=== PATIENT | male | born 1965 | race Caucasian/White ===

== ENCOUNTER 2019-12-19 16:02 | Outpatient (CLI) | payer OTHER, SELFPAY ==
[2019-12-20 07:34] LABS: Rapid Plasma Reagin Non-Reactive (NonReactive)
[2019-12-25 15:28] LABS: HIV DNA PCR (Qual) Not Detected (Not Detected)
== END 2019-12-19 16:03 | disposition home or self-care (01) ==
PROVIDERS: PCP Family Medicine; Visit Provider Family Medicine
DX: Z72.51 High risk heterosexual behavior (principal)
CPT/HCPCS: 36415; 86592; 87535

== ENCOUNTER → 2022-03-31 11:23 | Outpatient (CLI) | payer OTHER, SELFPAY ==
--- NOTE | ~2022-03-31 | XR_ITS ---
EXAM: XR hand RT min 3V DATE: 03/31/2022 11:31 HISTORY: NO INJURY LOSING STRENGTH IN HAND OVER LAST YEAR . COMPARISON: None available. FINDINGS: Normal mineralization. No fracture or dislocation. No lytic or blastic lesion. Mild second and third MCP joint narrowing. Hooklike osteophyte in the third metacarpal. No erosion or periosteal change. Soft tissues within normal limits. IMPRESSION: Mild scattered degenerative changes, most pronounced at the third MCP joint, noting that hooklike osteophytes can be seen with hemachromatosis. Reviewed, dictated and finalized at location K. IMPRESSION: Mild scattered degenerative changes, most pronounced at the third M CP joint, noting that hooklike osteophytes can be seen with hemachromatosis.
== END ==
PROVIDERS: PCP Family Medicine; Visit Provider Family Medicine
DX: R29.898 Other symptoms and signs involving the musculoskeletal system (principal); R93.6 Abnormal findings on diagnostic imaging of limbs
CPT/HCPCS: 73130

== ENCOUNTER 2022-04-07 10:10 | Outpatient (CLI) | payer OTHER, SELFPAY ==
--- NOTE | ~2022-04-07 | XR_ITS ---
EXAMINATION: XR abdomen/kub 1V DATE: 04/07/2022 10:26 INDICATION: Unspecified abdominal pain. TECHNIQUE: A supine view of the abdomen on 2 radiographs was obtained. COMPARISON: CT abdomen and pelvis 10/03/2018 FINDINGS: There are no dilated loops of bowel. There is a paucity of stool in the colon. There is no visible urolithiasis. IMPRESSION: 1. Normal bowel gas pattern. Reviewed, dictated and finalized at location A. MBLY RIVETER
== END 2022-04-07 10:11 | disposition home or self-care (01) ==
PROVIDERS: PCP Family Medicine; Visit Provider Family Medicine
DX: R10.9 Unspecified abdominal pain (principal)
CPT/HCPCS: 74018

== ENCOUNTER 2022-05-11 07:00 | Outpatient (NON) | payer OTHER, SELFPAY | END 2022-05-11 07:01 | disposition home or self-care (01) | LOC: ANHLAB 05-12 08:06 | PROVIDERS: Visit Provider Internal Medicine Gastroenterology | DX: R19.5 Other fecal abnormalities (principal) | CPT/HCPCS: 88305 ==

== ENCOUNTER 2022-05-11 09:32 | Day surgery (SDC) | payer OTHER, SELFPAY ==
[2022-04-08 13:21] VITALS: BMI 27.4
[2022-04-08 13:58] VITALS: BMI 27.6
[2022-05-11 10:54] VITALS: BP 141/94; PULSE 70; RESP 18; TEMP 36.8; O2SAT 99
[2022-05-11] MEDS: LACTATED RINGERS 1,000 ML 150 ML IV CONT (11:10)
--- NOTE | 2022-05-11 11:15 | WPDANESEPPF ---
Anes - Initial Pre Proc Eval Procedure: Operation Date: 05/11/22 12:00 Proposed Procedures p Diagnostic Colonoscopy - Boy Rasmussen MD Date/Time: 05/11/22 11:15 Surgeon: Boy Rasmussen MD Pre Op Diagnosis: Positive Cologuard Patient Data Age: 56 Gender: M Height: 1.79 m Weight: 87 kg Last Vital Signs Temp 36.8 C 05/11/22 10:54 Pulse 70 05/11/22 10:54 Resp 18 05/11/22 10:54 BP 141/94 H 05/11/22 10:54 Pulse Ox 99 05/11/22 10:54 O2 Del Method Room Air 05/11/22 10:54 Allergies Allergy/AdvReac Type Severity Reaction Status Date / Time No Known Allergies Allergy Unknown Verified 05/11/22 10:57 Home Medications Medication Instructions Recorded Confirmed Type sildenafil 100 mg tablet 100 mg PO PRN PRN sexual activity 04/30/22 05/11/22 History Patient hx anesthesia problems: other (yes but unknown) Family hx anesthesia problems: none Results Review: All pre-operative results and documents have been reviewed as part of the pre-operative evaluation. [facility] Past Medical History Medical History Achilles tendinitis Bilateral tinnitus BMI 27.0-27.9,adult Elevated glucose Elevated hemoglobin Gout, unspecified High risk sexual behavior Lateral epicondylitis of left elbow Mixed hyperlipidemia Positive colorectal cancer screening using Cologuard test Right flank pain Right hand weakness Tobacco abuse Family History Family History Grandparent Hypertension Diabetes mellitus Mother Hypertension Social History Social History Smoking packs per day: 0.5 Smoking cigarettes per day: 10.0 Years smoked: 43 Smoking pack-years: 21.50 Smoking status: Current every day smoker Tobacco type: cigarettes Alcohol intake: current Drinks per week: 12 Substance use type: unknown Living arrangements: with family Spiritual care concerns: No Anes - Eval Final PreProcedure Day of Procedure 05/11/22 11:15 Patient weight: overweight Heart: regular rate and rhythm Lungs: decreased breath sounds Airway: Mallampati scale class II Neurological: alert and oriented Last oral intake: >/= 8 hours ASA classification: III Emergent: no Anesthetic plan: proceed Anesthesia type and monitoring: general GIVS and standard monitoring Results Review: All pre-operative results and documents have been reviewed as part of the pre-operative evaluation. Informed Consent: The patient's anesthetic plan and its attendant risks and benefits were discussed with the patient/family/POA. Questions were solicited and answers provided to the satisfaction of the patient/family/POA.
--- NOTE | 2022-05-11 11:16 | PM.HPGS ---
History of Present Illness History of Present Illness Consent: Risks, benefits, and alternatives have been discussed and questions answered. Patient agrees to proceed with procedure. Chief complaint: Positive Cologuard Narrative: Petr Pryor is a 56 year old male here for first colonoscopy, had positive cologuard Review of Systems Constitutional: Constitutional: Denies headache(s) and Denies weakness Eyes: Eyes: Denies blurry vision ENT: Reports Normal hearing present, Denies headache(s) and Denies neck pain Cardiovascular: Cardiovascular: Denies chest pain and Denies dyspnea Respiratory: Respiratory: Denies dyspnea Gastrointestinal: Gastrointestinal: Reports no additional gastrointestinal complaints Genitourinary: Genitourinary: Denies dysuria Musculoskeletal: Musculoskeletal: Denies neck pain Integumentary/Breasts: Skin/Breast: Denies dry skin Neurologic: Reports Normal hearing present, Denies headache(s) and Denies weakness Psychiatric: Psychiatric: Denies anxiety Endocrine: Endocrine: Denies change in body appearance Hematologic/Lymphatic: Hematologic/Lymphatic: Denies easy bleeding Allergic/Immunologic: Allergic/Immunologic: Denies urticaria PMFSH Past Medical History Medical History Achilles tendinitis Bilateral tinnitus BMI 27.0-27.9,adult Elevated glucose Elevated hemoglobin Gout, unspecified High risk sexual behavior Lateral epicondylitis of left elbow Mixed hyperlipidemia Positive colorectal cancer screening using Cologuard test Right flank pain Right hand weakness Tobacco abuse Family History Family History Grandparent Hypertension Diabetes mellitus Mother Hypertension Social History Social History Smoking packs per day: 0.5 Smoking cigarettes per day: 10.0 Years smoked: 43 Smoking pack-years: 21.50 Smoking status: Current every day smoker Tobacco type: cigarettes Alcohol intake: current Drinks per week: 12 Substance use type: unknown Living arrangements: with family Spiritual care concerns: No Meds Home Medications and Allergies Home Medications Medication Instructions Recorded Confirmed Type sildenafil 100 mg tablet 100 mg PO PRN PRN sexual activity 04/30/22 05/11/22 History Allergies Allergy/AdvReac Type Severity Reaction Status Date / Time No Known Allergies Allergy Unknown Verified 05/11/22 10:57 Vital Signs Vital Signs - 24 hr 05/11/22 10:54 Temperature 98.2 F Pulse Rate 70 Respiratory Rate 18 Blood Pressure 141/94 H Pulse Oximetry 99 Oxygen Delivery Room Air Exam Const: General: comfortable and no acute distress HENMT: Face/Nose/Sinus: Normal nares present Eyes: General: appearance normal, both eyes and all related structures Neck: Neck: no JVD Resp: Auscultation: clear to auscultation bilaterally Cardio: Rate: regular rate Rhythm: regular rhythm GI: Inspection: non-distended GI Palp: Yes Soft to palpation Skin: General skin exam: normal color Neuro: General: gait normal Speech: normal speech Extrem: General: normal to inspection Psych: Mental Status: mental status grossly normal Assessment and Plan Assessment and plan (1) Positive colorectal cancer screening using Cologuard test: Code(s): R19.5 - Other fecal abnormalities Status: Acute Assessment and Plan: colonoscopy
[2022-05-11 11:38] VITALS: BP 113/83; PULSE 73; RESP 20; O2SAT 98
[2022-05-11 11:48] VITALS: BP 127/94; PULSE 79; RESP 20; O2SAT 99
[2022-05-11 11:58] VITALS: BP 131/86; PULSE 81; RESP 20; O2SAT 100
--- NOTE | 2022-05-11 12:09 | WPDANESPN ---
Anes - Prog Note Post-Op Date/Time: 05/11/22 12:09 Cardiovascular status: normal Respiratory status: normal Airway patency: baseline Mental status: baseline Post-Op hydration status: normal Vital Signs: Last Vital Signs Temp 36.8 C 05/11/22 10:54 Pulse 81 05/11/22 11:58 Resp 20 05/11/22 11:58 BP 131/86 05/11/22 11:58 Pulse Ox 100 05/11/22 11:58 O2 Del Method Room Air 05/11/22 11:58 Pain Score (VAS): 0 I/O: Intake & Output 05/10/22 05/11/22 05/11/22 23:59 07:59 15:59 Intake Total 400 Balance 400 Patient Feedback: Patient satisfied with anesthetic care.
== END 2022-05-11 12:21 | disposition home or self-care (01) ==
PROVIDERS: PCP Family Medicine; Visit Provider Internal Medicine Gastroenterology
PROC: 0DJD8ZZ Inspection of Lower Intestinal Tract, Via Natural or Artificial Opening Endoscopic (ICD-10-PCS; CPT 45378; principal; 2022-05-11 12:00)
DX: R19.5 Other fecal abnormalities (principal)
CPT/HCPCS: 45385

== ENCOUNTER → 2022-05-12 12:30 | Outpatient (CLI) | payer OTHER, SELFPAY ==
--- NOTE | ~2022-05-12 | CT_ITS ---
Non-contrast CT scan of the Abdomen and Pelvis Clinical indication: Flank pain, hematuria Technique: 5 mm axial scans were obtained through the abdomen and pelvis without intravenous or oral contrast. Dose reduction technique was used on this scan by utilizing automated exposure control and iterative reconstruction technique. The dose-length product (DLP) was 493.07 mGy-cm. COMPARISON: 10/03/2018 Findings: Images through the lung bases reveal no abnormalities. Horseshoe kidney noted. No hydronephrosis. No renal or ureteral stones identified. The liver, spleen, pancreas, gallbladder, and adrenals appear normal. There is no aortic aneurysm. There is no evidence of bowel obstruction. Images through the pelvis were performed. There is no evidence of ascites or lymphadenopathy. Urinary bladder unremarkable. Prostate gland unremarkable. Stable focal hyperdensity in the right seminal ve sicle. Impression: No acute abnormality. Horseshoe kidney, without hydronephrosis or renal/ureteral stone. Stable focal hyperdensities in the right seminal vesicle, of uncertain etiology, but stable since 10/03. Reviewed, dictated and finalized at location [] SURANCE CLAIMS ANALYST Impression: No acute abnormality. Horseshoe kidney, without hydronephrosis or renal/ureteral stone. Stable focal hyperdensities in the right seminal vesicle, of uncertain etiology , but stable since 10/03/2018.
== END ==
PROVIDERS: PCP Family Medicine; Visit Provider Family Medicine
DX: R31.9 Hematuria, unspecified (principal); R10.9 Unspecified abdominal pain; Q63.1 Lobulated, fused and horseshoe kidney
CPT/HCPCS: 74176

== ENCOUNTER → 2023-05-19 07:58 | Outpatient (CLI) | payer OTHER, SELFPAY ==
--- NOTE | ~2023-05-19 | XR_ITS ---
EXAMINATION: XR lumbar spine 6V w bending DATE: 05/19/2023 09:05 INDICATION: Lower limb weakness TECHNIQUE: Anteroposterior and lateral in neutral, flexion and extension views of the lumbar spine we re obtained. COMPARISON: 03/26/2011 FINDINGS: Bone alignment is normal. There is no hypermobility with flexion or extension. There is mil d loss of intervertebral disc space height at L4-5. The vertebral body heights are maintained. There is mild facet joint osteoarthritis at L5-S1. Small degenerative osteophytes project from the anterior endplates of multiple vertebral bodies. Calcified atherosclerosis is noted. IMPRESSION: 1. Mild lumbar spondylosis without acute findings. Reviewed, dictated and finalized at location B. GER PROJECT
== END ==
PROVIDERS: PCP Family Medicine; Visit Provider Family Medicine
DX: R29.898 Other symptoms and signs involving the musculoskeletal system (principal); M47.896 Other spondylosis, lumbar region
CPT/HCPCS: 72114

== ENCOUNTER 2023-06-29 09:31 | Outpatient (CLI) | payer OTHER, SELFPAY ==
--- NOTE | 2023-06-29 11:00 | NEURO_ITS ---
Impression: # Complains of lower extremity weakness. ? # Left lower extremity responses amplitude drop with symmetrical velocities. ? # Normal needle/EMG exam with no acute or chronic changes. ? # Clinical correlation recommended; Possibility of higher involvement cannot be ruled out. Nerve Conduction Studies Anti Sensory Summary Table Stim Site NR Peak (ms) P-T Amp (?V) Site1 Site2 Delta-P (ms) Dist (cm) Berry (m/s) Left Saphenous Anti Sensory (Ant Med Mall) 14cm 3.7 6.0 14cm Ant Med Mall 3.7 0.0 Right Saphenous Anti Sensory (Ant Med Mall) 14cm 3.8 4.9 14cm Ant Med Mall 3.8 0.0 Left Sup Fibular Anti Sensory (Ant Lat Mall) 14 cm 3.9 22.5 14 cm Ant Lat Mall 3.9 16.0 41 Right Sup Fibular Anti Sensory (Ant Lat Mall) 14 cm 3.8 12.3 14 cm Ant Lat Mall 3.8 16.0 42 Left Sural Anti Sensory (Lat Mall) Calf 4.2 22.0 Calf Lat Mall 4.2 18.0 43 Right Sural Anti Sensory (Lat Mall) Calf 4.2 17.9 Calf Lat Mall 4.2 18.0 43 Motor Summary Table Stim Site NR Onset (ms) O-P Amp (mV) Site1 Site2 Delta-0 (ms) Dist (cm) Berry (m/s) Left Peroneal Motor (Vastus Med) Ankle 4.6 2.8 Popit Ankle 9.2 44.0 48 Popit 13.8 3.0 Right Peroneal Motor (Vastus Med) Ankle 4.6 3.9 Popit Ankle 9.3 42.0 45 Popit 13.9 5.6 Left Tibial Motor (Abd Krishnamurthy Brev) Ankle 4.9 3.7 Knee Ankle 10.1 45.0 45 Knee 15.0 2.7 Right Tibial Motor (Abd Krishnamurthy Brev) Ankle 5.5 8.6 Knee Ankle 10.1 45.0 45 Knee 15.6 2.0 F Wave Studies NR F-Lat (ms) L-R F-Lat (ms) Left Peroneal (Mrkrs) (EDB) 57.16 1.09 Right Peroneal (Mrkrs) (EDB) 58.24 1.09 Left Tibial (Mrkrs) (Abd Hallucis) 57.27 0.04 Right Tibial (Mrkrs) (Abd Hallucis) 57.31 0.04 EMG Side Muscle Nerve Root Ins Act Fibs Amp Dur Recrt Comment Right AntTibialis Dp Br Fibular L4-5 Nml Nml Nml Nml Nml Right Gastroc Tibial S1-2 Nml Nml Nml Nml Nml Right Fibularis Long Sup Br Fibular L5-S1 Nml Nml Nml Nml Nml Right Flex Dig Long Tibial L5-S2 Nml Nml Nml Nml Nml Right Ext Dig Brev Dp Br Fibular L5, S1 Nml Nml Nml Nml Nml Left AntTibialis Dp Br Fibular L4-5 Nml Nml Nml Nml Nml Left Gastroc Tibial S1-2 Nml Nml Nml Nml Nml Left Fibularis Long Sup Br Fibular L5-S1 Nml Nml Nml Nml Nml Left Flex Dig Long Tibial L5-S2 Nml Nml Nml Nml Nml Left Ext Dig Brev Dp Br Fibular L5, S1 Nml Nml Nml Nml Nml Right QuadratusFem QuadFemoris L4-5, S1 Nml Nml Nml Nml Nml Left QuadratusFem QuadFemoris L4-5, S1 Nml Nml Nml Nml Nml MTDD
== END 2023-06-29 09:32 | disposition home or self-care (01) ==
LOC: ANHNEURO 09:33
PROVIDERS: PCP Family Medicine; Visit Provider Family Medicine
DX: R53.1 Weakness (principal)
CPT/HCPCS: 95886; 95911

== ENCOUNTER 2024-04-18 14:59 | Outpatient (CLI) | payer OTHER, SELFPAY ==
--- NOTE | ~2024-04-18 | XR_ITS ---
EXAMINATION: XR shoulder RT min 2V DATE: 04/18/2024 15:15 INDICATION: Right shoulder pain. TECHNIQUE: 4 views of right shoulder were obtained. COMPARISON: Right shoulder radiographs 09/17/2014 FINDINGS: Alignment is normal. No fracture. There is mild osteoarthritis of glenohumeral joint and ac romioclavicular joint. There is calcific tendinitis of the rotator cuff. IMPRESSION: 1. Mild polyarticular osteoarthritis. 2. Calcific tendinitis of the rotator cuff. Reviewed, dictated and finalized at location A. TO CHIP PROCESSING SUPERVISOR
== END 2024-04-18 15:00 | disposition home or self-care (01) ==
LOC: ANHIMG 15:01
PROVIDERS: PCP Family Medicine; Visit Provider Physician Assistant Medical
DX: M19.011 Primary osteoarthritis, right shoulder (principal)
CPT/HCPCS: 73030

== ENCOUNTER 2024-09-23 10:10 | Emergency (ER) | payer OTHER, SELFPAY ==
[2024-09-23 10:13] VITALS: BP 148/87; PULSE 57; RESP 18; TEMP 36.7; O2SAT 99
--- NOTE | 2024-09-23 10:33 | ECG_ITS ---
Test Date: 2024-09-23 10:47:34 Measurements Intervals [place] Rate: 54 P: 8 [place]: 224 QRS: 31 QRSD: 107 T: 41 QT: 400 QTc: 380 Interpretive Statements SINUS BRADYCARDIA WITH FIRST DEGREE AV BLOCK CANNOT R/O SEPTAL INFARCT, AGE INDETERMINATE BASELINE ARTIFACT- I, II, III, AVR, AVL, AVF, V5 ABNORMAL ECG No previous ECG available for comparison Electronically Signed On 09-23-2024 12:57:48 CDT by Ryan Lezama D.O.
--- NOTE | 2024-09-23 10:55 | ED.CHESTPAIN ---
HPI - Chest Pain General Chief Complaint: Chest Pain Stated Complaint: middle chest pain Time Seen by Provider: 09/23/24 10:40 Source: patient, RN notes reviewed and old records reviewed Mode of arrival: ambulatory Limitations: no limitations History of Present Illness HPI narrative: 59 year old male presents to [facility] with complaints of awakening this morning around 0700 with upper chest pain that lasted about an hour that was non radiating but a constant dull aching pain. Patient reports that he has no shortness of breath, no diaphoresis, no nausea or any dizziness and is not currently having any chest pain. Patient reports that a week ago had some throbbing pain in his neck none today. Patient reports that he has an uneasy feeling today, states he changed clothes 3 times before he came to clinic. Patient reports that he takes no medication daily, is former 1 pack per day smoker but quit in November of 2023. Patient reports alcohol use about 3 times weekly of 6 drinks usually on each occasion. MD complaint: other (chest pain this morning around 7 am lasted for 1 hour) Pertinent past history: other (former smoker) Onset (ago): day(s) (7 am lasted for about an hour, no nausea, diaphoresis or dyspnea) Timing of current episode: other (this am for 1 hour) Pain location: substernal Pain radiation: none Quality: aching and dull Treatment prior to arrival: none Risk Factors Coronary artery disease risk factors: smoking history (former) and hyperlipidemia Related Data Home Medications ?Medication ?Instructions ?Recorded ?Confirmed ?Last Taken ?Type No Home Medications 09/23/24 09/23/24 Unknown History Allergies Allergy/AdvReac Type Severity Reaction Status Date / Time No Known Allergies Allergy Unknown Verified 09/23/24 11:33 Review of Systems Review of Systems: CONSTITUTIONAL: Denies fever, chills, or sweats. EYES: Denies visual changes, redness, or discharge. ENT: Denies rhinorrhea, congestion, sore throat, or otalgia. CARDIOVASCULAR: Reports mid sternal chest pain at 7 am lasting about 1 hour gone now was non radiating, no nausea or diaphoresis,no dyspnea, no palpitations, or edema. RESPIRATORY: Denies cough or dyspnea. GASTROINTESTINAL: Denies abdominal pain, nausea, vomiting, or diarrhea. GENITOURINARY: Denies dysuria or hematuria. SKIN: Denies rash or itching. MUSCULOSKELETAL: Denies back pain, joint pain, or myalgia. NEUROLOGIC: Denies headache, numbness, or weakness. PSYCHIATRIC: Denies anxiety or depression. All systems reviewed & are unremarkable except as noted in HPI and below PMFSH Past Medical History Medical History Low testosterone level in male Decreased libido Left leg weakness BMI 26.0-26.9,adult Changing skin lesion High risk sexual behavior Right flank pain Right hand weakness Third digit BMI 27.0-27.9,adult Elevated hemoglobin Elevated glucose Tobacco abuse Bilateral tinnitus Achilles tendinitis Positive colorectal cancer screening using Cologuard test Lateral epicondylitis of left elbow Gout, unspecified Mixed hyperlipidemia Surgical History Surgical History Hx of appendectomy History of tonsillectomy Family History Family History Grandparent Hypertension Diabetes mellitus Mother Hypertension Social History Social History Smoking packs per day: 1 Smoking cigarettes per day: 20.0 Years smoked: 36 Smoking pack-years: 36.00 Smoking status: Former smoker Tobacco type: cigarettes Additional smoking assessment comments: Quit in November 2024 Alcohol intake: current Drinks per week: 18 Substance use type: marijuana Other substance usage details: 2-3 times a week Do You Feel Safe in your Home?: Yes Lack of Transportation: No Lack of Food: Never True Current Housing: I Have Housing Concerned About Future Housing: No Difficulty Paying Gas/Electric Bills: No Difficulty Paying for Meds: No Currently Unemployed: No Education: Bachelor's Degree Difficulty w/ Childcare or Family Care: No Living arrangements: with family Occupation/Education: occupation 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 There is no relevant family history pertinent to the presenting complaint Exam Narrative: GENERAL: Well-appearing, well-nourished, and in no acute distress at this time HEAD: Normocephalic, atraumatic. EYES: PERRLA and EOMI. ENT: Nares clear, no rhinorrhea or epistaxis. Mucous membranes moist. throat pink with no swelling NECK: Supple. no lymphadenopathy CHEST: Clear to auscultation. No respiratory distress. lungs clear to auscultation SAO2 99% on room air HEART: Regular rate and rhythm. No murmur heard. Normal peripheral pulses. ABDOMEN: Soft, nontender, nondistended, normal active bowel sounds. EXTREMITIES: Normal range of motion. No edema. SKIN: Warm, dry, no rash. NEURO: No focal deficits. Alert and oriented x3. Course Course Emergency Course: Patient is aware of diagnosis, understands and agrees to treatment plan.? Anticipatory guidance given.? Patient agrees to follow-up as directed and is aware of reasons to seek care at the emergency department. Portions of this record may have been created with voice recognition software Level of Care: Express Care Visit Vital Signs Vital signs: Vital Signs Temperature 36.7 C 09/23/24 10:13 Pulse Rate 57 L 09/23/24 10:13 Respiratory Rate 18 09/23/24 10:13 Blood Pressure 148/87 H 09/23/24 10:13 Pulse Oximetry 99 09/23/24 10:13 Oxygen Delivery Room Air 09/23/24 10:13 Temperature 36.7 C 09/23/24 10:13 Pulse Rate 57 L 09/23/24 10:13 Respiratory Rate 18 09/23/24 10:13 Blood Pressure 148/87 H 09/23/24 10:13 Pulse Oximetry 99 09/23/24 10:13 Oxygen Delivery Room Air 09/23/24 10:30 Reviewed MDM - Chest Pain Differential Diagnosis Differential diagnosis: Likely stable angina, unstable angina pectoris, atypical chest pain, st elevation myocardial infarction, chest pain and other (septal infarct age indeterminate) Medical Records Data Attestation: I reviewed the patient's medical records. ECG Data EKG #1: Attestation: I personally reviewed and interpreted this ECG as follows: ECG completion date: 09/23/24 ECG completion time: 10:47 Prior ECG tracings: not available for review Ischemic changes: q waves Interpretation: sinus bradycardia with first degree AV block rate 54, RI 224ms, QRS 107ms QT 400ms EKG Interpretation: bradycardia (1st degree AV Block) and other (possible septal infarct age indeterminant) Critical Care Time Critical Care Time Critical Care Time: Yes (30 minutes) Total Critical Care Time: 30 Discharge Plan Discharge Clinical Impression: Chest pain Qualifiers: Chest pain type: unspecified Qualified Code(s): R07.9 - Chest pain, unspecified Patient Disposition: Acute Care Hospital Condition: Stable Patient Language: Welsh Prescriptions: No Action No Home Medications Follow-up/Referrals: Luis Manuel James MD [Primary Care Provider] - Time of Disposition: 11:15 Quality Lynn Coma Scale Eyes: Open Verbal: Oriented and Alert Motor: Follows Commands Matthews Coma Total Score: 15
[2024-09-23] MEDS: ASPIRIN 81 MG CHEWABLE TABLET 324 MG PO (11:07)
== END 2024-09-23 11:15 | disposition short-term general hospital (02) ==
PROVIDERS: Emergency Provider Registered Nurse; PCP Family Medicine
DX: R07.9 Chest pain, unspecified (principal); R00.1 Bradycardia, unspecified; I44.0 Atrioventricular block, first degree; Z87.891 Personal history of nicotine dependence; E78.2 Mixed hyperlipidemia; M10.9 Gout, unspecified; F12.90 Cannabis use, unspecified, uncomplicated
CPT/HCPCS: 93005; 99213; A9270; G0463

== ENCOUNTER 2024-09-23 11:33 | Inpatient (IN) | payer OTHER, SELFPAY ==
[2024-09-23] VITALS (18 sets, daily range): BP systolic 132–155; BP diastolic 75–105; PULSE 51–70; RESP 16–25; TEMP 36.4–36.8; O2SAT 94–100; BMI 28.1
--- NOTE | ~2024-09-23 | XR_ITS ---
EXAMINATION: XR chest 1V portable DATE: 09/23/2024 12:01 INDICATION: Chest pain TECHNIQUE: frontal view of the chest was obtained. COMPARISON: None FINDINGS: The lungs are clear with no focal airspace opacities, pulmonary edema, pleural effusion or pneumothor ax. The cardiomediastinal silhouette is normal. Visualized bones and soft tissues are unremarkable. IMPRESSION: 1. No acute cardiopulmonary disease. Reviewed, dictated and finalized at location A.
--- NOTE | 2024-09-23 11:37 | ECG_ITS ---
Test Date: 2024-09-23 11:41:59 Measurements Intervals [place] Rate: 52 P: -16 [place]: 199 QRS: 25 QRSD: 108 T: 29 QT: 411 QTc: 384 Interpretive Statements SINUS BRADYCARDIA WITH FIRST DEGREE AV BLOCK DELAYED PRECORDIAL R/S TRANSITION BASELINE ARTIFACT- AVR, AVL, AVF BORDERLINE ECG Compared to ECG 09/23/2024 10:47:34 NO SIGNIFICANT CHANGE Electronically Signed On 09-23-2024 13:00:00 CDT by Ryan Lezama D.O.
[2024-09-23 11:57] LABS: Basophils Absolute Auto 0.1 K/mm3 (0.0-0.1); Basophils Percent Auto 0.7 % (0.2-1.2); Eosinophils Absolute Auto 0.1 K/mm3 (0-0.3); Eosinophils Percent Auto 1.4 % (0-4.4); Hematocrit 48.2 % (42.0-52.0); Hemoglobin 17.1 g/dL (14.0-18.0); Immature Granulocyte Absolute 0.04 K/mm3 (0.00-0.031); Immature Granulocyte Percent A 0.5 % (0-0.5); Lymphocytes Absolute Auto 1.98 K/mm3 (0.9-3.2); Lymphocytes Percent Auto 26.9 % (18.3-44.2); Mean Corpuscular HGB Conc 35.5 g/dl (32-36); Mean Corpuscular Hemoglobin 30.8 pg (26-34); Mean Corpuscular Volume 86.7 fl (80-100); Mean Platelet Volume 9.2 fl (7.4-10.4); Monocytes Absolute Auto 0.5 K/mm3 (0.1-0.6); Monocytes Percent Auto 7.2 % (2.6-8.5); Neutrophils Absolute Auto 4.7 K/mm3 (1.3-6.7); Neutrophils Percent Auto 63.3 % (45.5-73.1); Platelet Count Result 185 k/mm3 (150-375); Red Blood Count 5.56 M/mm3 (4.6-6.20); Red Cell Distribution Width 12.4 % (11.5-14.5); White Blood Count 7.4 K/mm3 (4.5-10.0)
--- NOTE | 2024-09-23 12:00 | ED.CHESTPAIN ---
HPI - Chest Pain General Chief Complaint: Chest Pain Stated Complaint: CP, abnormal EKG Time Seen by Provider: 09/23/24 11:37 History of Present Illness HPI narrative: 59-year-old male with no significant pertinent past medical history presenting to the emergency department chief complaint of midsternal chest pain that started last night. He states the chest pain is not resolved he is not having any discomfort but about 1 hour ago he went to urgent care with complaints of the chest pain. They obtained EKG that shows concerning findings and referred him to the emergency department. Patient received 324 mg of aspirin at the urgent care. Patient denies any chest pain presently, no shortness a breath, nausea, vomiting, abdominal pain or back pain. He states he has had GERD like symptoms intermittently several weeks ago but thought nothing of it. No cardiac history to his knowledge, no history of thromboembolic disease or aortic pathology. He was otherwise in his normal state of health. Related Data Home Medications ?Medication ?Instructions ?Recorded ?Confirmed ?Last Taken ?Type No Home Medications 09/23/24 09/23/24 Unknown History Allergies Allergy/AdvReac Type Severity Reaction Status Date / Time No Known Allergies Allergy Unknown Verified 09/23/24 11:33 Review of Systems Review of Systems: As reviewed above in HPI [facility] Past Medical History Medical History Low testosterone level in male Decreased libido Left leg weakness BMI 26.0-26.9,adult Changing skin lesion High risk sexual behavior Right flank pain Right hand weakness Third digit BMI 27.0-27.9,adult Elevated hemoglobin Elevated glucose Tobacco abuse Bilateral tinnitus Achilles tendinitis Positive colorectal cancer screening using Cologuard test Lateral epicondylitis of left elbow Gout, unspecified Mixed hyperlipidemia Surgical History Surgical History Hx of appendectomy History of tonsillectomy Family History Family History Grandparent Hypertension Diabetes mellitus Mother Hypertension Social History Social History Smoking packs per day: 1 Smoking cigarettes per day: 20.0 Years smoked: 36 Smoking pack-years: 36.00 Smoking status: Former smoker Tobacco type: cigarettes Additional smoking assessment comments: Quit in November 2024 Alcohol intake: current Drinks per week: 18 Substance use type: marijuana Other substance usage details: 2-3 times a week Do You Feel Safe in your Home?: Yes Lack of Transportation: No Lack of Food: Never True Current Housing: I Have Housing Concerned About Future Housing: No Difficulty Paying Gas/Electric Bills: No Difficulty Paying for Meds: No Currently Unemployed: No Education: Bachelor's Degree Difficulty w/ Childcare or Family Care: No Living arrangements: with family Occupation/Education: occupation 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 Mucous membranes moist. NECK: Supple. CHEST: [Clear to auscultation. No respiratory distress.] HEART: [Regular rate and rhythm]. No murmur heard. [Normal peripheral pulses.] ABDOMEN: [Soft, nondistended], [nontender], [No rigidity or guarding] EXTREMITIES: Normal range of motion. [No edema.] SKIN: Warm, dry, no rash. NEURO: [No focal deficits]. Alert and oriented [x3.] PSYCH: [Normal mood and affect.] Course Vital Signs Vital signs: Vital Signs Temperature 36.4 C 09/23/24 11:41 Pulse Rate 51 L 09/23/24 11:41 Respiratory Rate 18 09/23/24 11:41 Blood Pressure 152/95 H 09/23/24 11:41 Pulse Oximetry 99 09/23/24 11:41 Oxygen Delivery Room Air 09/23/24 11:41 Temperature 36.6 C 09/23/24 18:10 Pulse Rate 63 09/23/24 18:10 Respiratory Rate 20 09/23/24 18:10 Blood Pressure 146/96 H 09/23/24 18:10 Pulse Oximetry 99 09/23/24 18:10 Oxygen Delivery Room Air 09/23/24 11:58 MDM - Chest Pain MDM Narrative Medical decision making narrative: 59-year-old male presenting to the emergency department from urgent care for concerns of chest pain. He had chest pain last night intermittently in the center of his chest. Stated that resolved this morning but he went to urgent care. Urgent care did EKG then referred him to the emergency department. He is not having any symptoms at this time such as chest pain, shortness a breath, back pain, abdominal pain. No nausea or vomiting. He did get aspirin at urgent care prior to arrival by private vehicle. He is slightly hypertensive with a blood pressure 152/95, pulse 51 with a sinus bradycardia on the monitor. Normal oxygen saturation and afebrile. He has an unremarkable examination with strong symmetric pulses, warm extremities. No present symptomatology. EKG, chest x-ray and serial troponins were drawn. EKG was reviewed from urgent care that shows some deep Q-waves that appear to have a improved but no ST segment elevations or depressions that are concerning for an acute OK at this time. Workup shows no leukocytosis or anemia. Normal platelet count. Initial troponin is negative however his 3 hour troponin did have a positive delta ruling in ACS at this time. EKG shows no acute ischemic evidence or changes from prior. Coagulation panel was normal. Normal renal function, normal glucose and electrolyte panel. Chest x-ray shows no acute cardiopulmonary disease. Cardiology was consulted and he was given a 1 milligram/kilogram dose of Lovenox. Spoke to the hospitalist for admission to the IMU at this time. Patient was made aware of the plan and agreeable. Medical Records Data Attestation: I reviewed the patient's medical records. Lab Data Attestation: I reviewed the patient's lab results. 09/23/24 11:49 09/23/24 11:49 Labs: Lab Results 09/23/24 09/23/24 Range/Units 11:49 14:44 WBC 7.4 (4.5-10.0) K/mm3 RBC 5.56 (4.6-6.20) M/mm3 Hgb 17.1 (14.0-18.0) g/dL Hct 48.2 (42.0-52.0) % MCV 86.7 (80-100) fl MCH 30.8 (26-34) pg MCHC 35.5 (32-36) g/dl RDW 12.4 (11.5-14.5) % Plt Count 185 (150-375) k/mm3 MPV 9.2 (7.4-10.4) fl Immature Gran % (Auto) 0.5 (0-0.5) % Neut % (Auto) 63.3 (45.5-73.1) % Lymph % (Auto) 26.9 (18.3-44.2) % [place] % (Auto) 7.2 (2.6-8.5) % Eos % (Auto) 1.4 (0-4.4) % Baso % (Auto) 0.7 (0.2-1.2) % Lymph # (Auto) 1.98 (0.9-3.2) K/mm3 [place] # (Auto) 0.5 (0.1-0.6) K/mm3 Eos # (Auto) 0.1 (0-0.3) K/mm3 Baso # (Auto) 0.1 (0.0-0.1) K/mm3 Abs Immat Gran (auto) 0.04 H (0.00-0.031) K/mm3 Absolute Neuts (auto) 4.7 (1.3-6.7) K/mm3 Absolute Nucleated RBC 0.000 (0.0-0.012) K/mm3 Nucleated RBC % 0.0 (0.0-0.2) % PT 12.9 (11.1-14.7) Seconds INR 0.9 APTT 25.2 (22.3-36.8) Seconds Sodium 138 (137-145) mmol/L Potassium 4.1 (3.4-5.0) mmol/L Chloride 105 (98-107) mmol/L Carbon Dioxide 21 L (22-30) mmol/L Anion Gap 12 (4-12) mmol/L BUN 20 (9-20) mg/dL Creatinine 0.71 (0.7-1.3) mg/dL Estim Creat Clear Calc 104 ml/min Estimated GFR > 60 (59 - ) Glucose 94 (65-110) mg/dL Calcium 9.2 (8.4-10.2) mg/dL Total Bilirubin 1.0 (0.2-1.3) mg/dL AST 33 (17-59) U/L ALT 55 H (6-50) U/L Alkaline Phosphatase 65 (38-126) U/L Troponin I < 0.012 0.025 D (0.000-0.034) ng/mL Total Protein 8.0 (6.3-8.2) g/dL Albumin 4.7 (3.5-5.1) g/dL Lipase 82 (23-300) U/L Imaging Data Attestation: I personally reviewed and interpreted this imaging study as follows: My impression: Impressions Chest X-Ray 09/23/24 12:11 IMPRESSION: 1. No acute cardiopulmonary disease. ECG Data EKG #1: Attestation: I personally reviewed and interpreted this ECG as follows: ECG completion date: 09/23/24 ECG completion time: 11:41 Prior ECG tracings: available for review Interpretation: No ST segment elevations, depressions or inversions. Sinus bradycardia with a first-degree block. PA 199, QTC 383, QRS 108 milliseconds. Compared to prior EKG there are no significant interval changes. Final interpretation sinus bradycardia with first-degree AV block. Critical Care Time Critical Care Time Critical Care Time: Yes Total Critical Care Time: 36 Discharge Plan Discharge Clinical Impression: Elevated troponin, Non-ST elevation [place] (NSTEMI) Chest pain Qualifiers: Chest pain type: unspecified Qualified Code(s): R07.9 - Chest pain, unspecified Patient Disposition: Still a Patient Condition: Stable
[2024-09-23 12:08] LABS: INR 0.9; Prothrombin Time 12.9 Seconds (11.1-14.7)
[2024-09-23 12:09] LABS: Partial Thromboplastin Time 25.2 Seconds (22.3-36.8)
[2024-09-23 12:14] LABS: Alanine Aminotransferase 55 U/L (6-50); Albumin Level 4.7 g/dL (3.5-5.1); Alkaline Phosphatase 65 U/L (38-126); Anion Gap 12 mmol/L (4-12); Aspartate Amino Transferase 33 U/L (17-59); Blood Urea Nitrogen 20 mg/dL (9-20); Calcium 9.2 mg/dL (8.4-10.2); Carbon Dioxide 21 mmol/L (22-30); Chloride 105 mmol/L (98-107); Estimated CRCL calculation 104 ml/min; Estimated Glomerular Filt Rate > 60; Glucose 94 mg/dL (65-110); Lipase 82 U/L (23-300); Potassium 4.1 mmol/L (3.4-5.0); Sodium 138 mmol/L (137-145)
[2024-09-23 12:24] LABS: Troponin I < 0.012 ng/mL (0.000-0.034)
--- NOTE | 2024-09-23 14:39 | ECG_ITS ---
Test Date: 2024-09-23 14:45:06 Measurements Intervals [place] Rate: 54 P: 1 GA: 219 QRS: 26 QRSD: 98 T: 23 QT: 411 QTc: 390 Interpretive Statements SINUS BRADYCARDIA WITH FIRST DEGREE AV BLOCK DELAYED PRECORDIAL R/S TRANSITION BORDERLINE R WAVE PROGRESSION, ANTERIOR LEADS CONSIDER INFERIOR INFARCT, AGE INDETERMINATE ABNORMAL ECG Compared to ECG 09/23/2024 11:41:59 No significant changes Electronically Signed On 09-23-2024 15:44:05 CDT by Ryan Lezama D.O.
[2024-09-23 15:13] LABS: Troponin I 0.025 ng/mL (0.000-0.034)
--- NOTE | 2024-09-23 15:50 | P.HP_ITS ---
H&P: HPI History of Present Illness Date/Time: 09/23/24 18:00 Chief Complaint: Chest discomfort. Narrative: This is a 59-year-old male, former smoker, with history of hyperlipidemia, gastroesophageal reflux disease, kidney stones, and gout who presented to the emergency department for evaluation of chest discomfort. He reports the gradual onset of mild, nonradiating substernal chest tightness this morning associated with feelings of fatigue, almost like he had no energy. It resolved on its own within about an hour without intervention. He denies aggravating and alleviating factors. It is not similar to the symptoms he experiences with his GERD. He went to urgent care for evaluation and was given aspirin 324 mg and after an EKG showed some concerning findings, he was directed to the emergency department. Currently he has no complaints and denies chest tightness. He also denies syncope, near syncope, sweats, shortness of breath, nausea, vomiting, melena, pleuritic pain, lower extremity edema, and calf pain. He has known history of coronary artery disease or premature coronary artery disease in the family. He believes that he had a stress test done years ago which was unremarkable. In the ED: Vital signs on arrival include a temperature 97.6?, blood pressure 152/95, pulse 51, respiratory rate 18, SpO2 99% on room air. CMP and CBC were without significant findings. Initial troponin was undetectable but his 6 hour troponin was elevated to 0.073. EKG showed sinus bradycardia with first-degree AV block, delayed precordial R/S transition, borderline R-wave progression, and small Q-waves in lead 3. He received aspirin 324 mg at urgent care and was given enoxaparin 1 mg/kg and he is being admitted to the IMU in this setting for close monitoring and Cardiology consultation. Review of Systems Review of Systems: 12 systems were reviewed and are negativ e except for as per HPI. [facility] Past Medical History Medical History (Updated 09/23/24 @ 22:09 by Bonnie Davey PA-C) Gastroesophageal reflux disease Kidney stones Former smoker Low testosterone level in male Positive colorectal cancer screening using Cologuard test Gout, unspecified Mixed hyperlipidemia Surgical History Surgical History (Updated 09/23/24 @ 22:01 by Bonnie Davey PA-C) History of appendectomy History of tonsillectomy Family History Family History Grandparent Hypertension Diabetes mellitus Mother Hypertension Social History Social History (Updated 09/23/24 @ 22:02 by Bonnie Davey PA-C) Social History: Surrogate medical decision maker: Agnes Pryor, spouse. Code status: Full code. Smoking packs per day: 1 Smoking cigarettes per day: 20.0 Years smoked: 36 Smoking pack-years: 36.00 Smoking status: Former smoker Tobacco type: cigarettes Additional smoking assessment comments: Quit in November 2023 Alcohol intake: current Drinks per week: 18 Substance use type: marijuana Other substance usage details: 2-3 times a week Do You Feel Safe in your Home?: Yes Lack of Transportation: No Lack of Food: Never True Current Housing: I Have Housing Concerned About Future Housing: No Difficulty Paying Gas/Electric Bills: No Difficulty Paying for Meds: No Currently Unemployed: No Education: Bachelor's Degree Difficulty w/ Childcare or Family Care: No Living arrangements: with family Occupation/Education: occupation 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 Spiritual care concerns: No Meds Home Medications and Allergies Home Medications ?Medication ?Instructions ?Recorded ?Confirmed ?Type No Home Medications 09/23/24 09/23/24 History Allergies Allergy/AdvReac Type Severity Reaction Status Date / Time No Known Allergies Allergy Unknown Verified 09/23/24 11:33 Vital Signs Vital Signs - 24 hr 09/23/24 11:41 09/23/24 11:42 09/23/24 11:58 Temperature 97.6 F Pulse Rate 51 L 57 L Respiratory Rate 18 16 Blood Pressure 152/95 H 152/95 H Pulse Oximetry 99 99 97 Oxygen Delivery Room Air Room Air 09/23/24 12:31 09/23/24 13:16 09/23/24 14:15 Temperature Pulse Rate 59 L 57 L 56 L Respiratory Rate 20 20 16 Blood Pressure 155/97 H 149/94 H 139/88 Pulse Oximetry 96 97 97 Oxygen Delivery Exam Narrative: General: Well-developed, nontoxic-appearing male sitting up in bed in no acute distress. Weight: 91.6 kg. BMI: 28.2. HEENT: PERRL, EOMI. Sclera anicteric. Oral mucosa moist. Neck: Supple. Respiratory: Lungs are clear to auscultation bilaterally. Cardiovascular: Regular rate and rhythm with S1-S2. Chest: No tenderness to palpation over the chest wall. Gastrointestinal: Abdomen is soft, protuberant, nontender, and nondistended with positive bowel sounds. Skin: Warm and dry. No rash or lesions on limited exam. Extremities: No cyanosis, clubbing, or edema. Radial and pedal pulses intact. Neurological: Alert. Cranial nerves 2-12 are grossly intact. No gross focal deficits to casual conversation. Psychiatric: Pleasant and cooperative with normal mood and affect. Judgment and insight intact. H&P: Results Labs Labs: Short CBC 09/23/24 Range/Units 11:49 WBC 7.4 (4.5-10.0) K/mm3 Hgb 17.1 (14.0-18.0) g/dL Hct 48.2 (42.0-52.0) % Plt Count 185 (150-375) k/mm3 BMP 09/23/24 11:49 Sodium 138 Potassium 4.1 Chloride 105 Carbon Dioxide 21 L BUN 20 Creatinine 0.71 Glucose 94 Calcium 9.2 Cardiac Enzymes 09/23/24 09/23/24 Range/Units 11:49 14:44 Troponin I < 0.012 0.025 D (0.000-0.034) ng/mL Liver Function 09/23/24 Range/Units 11:49 Total Bilirubin 1.0 (0.2-1.3) mg/dL AST 33 (17-59) U/L ALT 55 H (6-50) U/L Alkaline Phosphatase 65 (38-126) U/L Albumin 4.7 (3.5-5.1) g/dL Imaging Chest X-Ray 09/23/24 12:11 IMPRESSION: 1. No acute cardiopulmonary disease. Assessment and Plan Assessment and plan (1) Non-ST elevation [place] (NSTEMI): Code(s): I21.4 - Non-ST elevation (NSTEMI) myocardial infarction Status: Acute (2) Mixed hyperlipidemia: Code(s): E78.2 - Mixed hyperlipidemia Status: Acute (3) Elevated blood pressure reading: Code(s): R03.0 - Elevated blood-pressure reading, without diagnosis of hypertension Status: Acute (4) Gastroesophageal reflux disease: Code(s): K21.9 - Gastro-esophageal reflux disease without esophagitis Status: Acute Plan The patient presented to the emergency department for evaluation of substernal chest tightness this morning as detailed in HPI. Labs, imaging, EKG, and all reports were personally reviewed. EKG does not show any concerning ST segment changes and his initial troponin was negative however 6 hour troponin did jump to 0.073. History is concerning for acute coronary syndrome and we will continue enoxaparin 1 mg/kg b.i.d. Hold beta-vernon for now as he is already bradycardic in the low to mid 50s. Troponins will be trended to peak. He will be NPO after midnight for possible stress test or cardiac catheterization tomorrow. Cardiology was consulted by the ED physician and their input is appreciated. Blood pressures have been ranging anywhere from the 130s to low 150s systolic. Continue to trend for now initiate hypertensives if indicated. Check fasting lipid panel in a.m.. His home medications will be reviewed and resumed as appropriate. Findings and treatment plan were discussed with the patient. Questions were solicited and answered to satisfaction. The patient's medical management will be taken over by the hospitalist team in a.m. Quality VTE Prophylaxis VTE prophylaxis: pharmacologic ordered The patient has been admitted under observation status. Hospitalist MIPS Advance Care Plan I have confirmed that the patient's Advanced Care Plan is present, code status is documented, or surrogate decision maker is listed in patient medical record.: Yes Medication Reconciliation The patient is not eligible for med reconciliation; the patient is in a emergent medical situation where delaying treatment would jeopardize the patients health.: Yes
[2024-09-23] MEDS: ENOXAPARIN 100 MG/ML SYRINGE 92 MG SUB-Q (17:13)
[2024-09-23 18:45] LABS: Troponin I 0.073 ng/mL (0.000-0.034)
--- NOTE | 2024-09-23 18:46 | ADMGEN ---
This patient, Petr Pryor, was admitted to IMU Room 213-01 at 1740. Patient/family oriented to hospital policies and general routines including ID bracelet, bed and alarms, visiting hours, pain management, procedures, bathroom and other care routines, personal items, smoking policy, room service/diet, and visiting hours. Information on how to activate the Rapid Response Team has been discussed. Patient/Family are encouraged to report perceived risks to care and to ask questions if they do not understand what they are told or what they should do.
[2024-09-24] VITALS (15 sets, daily range): BP systolic 120–152; BP diastolic 75–89; PULSE 52–88; RESP 16–24; TEMP 36.4–36.7; O2SAT 96–100
[2024-09-24 04:23] LABS: Hematocrit 44.7 % (42.0-52.0); Hemoglobin 16.1 g/dL (14.0-18.0); Mean Corpuscular Hemoglobin 31.3 pg (26-34); Mean Platelet Volume 9.2 fl (7.4-10.4); Platelet Count Result 172 k/mm3 (150-375); Red Blood Count 5.14 M/mm3 (4.6-6.20); Red Cell Distribution Width 12.2 % (11.5-14.5); White Blood Count 4.9 K/mm3 (4.5-10.0)
[2024-09-24 04:50] LABS: Troponin I 0.074 ng/mL (0.000-0.034)
[2024-09-24] MEDS: ENOXAPARIN 100 MG/ML SYRINGE 92 MG SUB-Q (05:05)
[2024-09-24 05:41] LABS: Alanine Aminotransferase 48 U/L (6-50); Alkaline Phosphatase 75 U/L (38-126); Anion Gap 8 mmol/L (4-12); Aspartate Amino Transferase 36 U/L (17-59); Bilirubin,Total 0.6 mg/dL (0.2-1.3); Blood Urea Nitrogen 19 mg/dL (9-20); Calcium 8.5 mg/dL (8.4-10.2); Carbon Dioxide 22 mmol/L (22-30); Chloride 107 mmol/L (98-107); Estimated CRCL calculation 97 ml/min; Estimated Glomerular Filt Rate > 60; Glucose 108 mg/dL (65-110); Magnesium 2.1 mg/dL (1.6-2.3); Potassium 4.1 mmol/L (3.4-5.0); Sodium 137 mmol/L (137-145)
[2024-09-24 08:35] LABS: Cholesterol 211 mg/dL (0-200); HDL Direct 48 mg/dL; Triglycerides 398 mg/dL (<150)
[2024-09-24 08:46] LABS: LDL Cholesterol Direct 108 mg/dL
[2024-09-24] MEDS: ASPIRIN 81 MG ENTERIC TABLET PO (09:26)
--- NOTE | 2024-09-24 09:34 | PM.IMPN ---
Progress Note: A&P Assessment and Plan (1) Non-ST elevation MS (NSTEMI): Code(s): I21.4 - Non-ST elevation (NSTEMI) myocardial infarction <Julio César Toure - Last Filed: 09/24/24 14:43> Status: Acute <Haja Hernández Student - Last Filed: 09/24/24 14:43> (2) Mixed hyperlipidemia: Code(s): E78.2 - Mixed hyperlipidemia <Haja Hernández Student - Last Filed: 09/24/24 14:43> Status: Acute <Haja Hernández Student - Last Filed: 09/24/24 14:43> (3) Elevated blood pressure reading: Code(s): R03.0 - Elevated blood-pressure reading, without diagnosis of hypertension <Haja Hernández Student - Last Filed: 09/24/24 14:43> Status: Acute <Haja Hernández - Last Filed: 09/24/24 14:43> (4) Gastroesophageal reflux disease: Qualifiers: Esophagitis presence: esophagitis presence not specified Qualified Code(s): K21.9 - Gastro-esophageal reflux disease without esophagitis <Haja Hernández Student - Last Filed: 09/24/24 14:43> Code(s): K21.9 - Gastro-esophageal reflux disease without esophagitis <Haja Hernández Student - Last Filed: 09/24/24 14:43> Status: Acute <Haja Hernández - Last Filed: 09/24/24 14:43> Assessment and Plan: #NSTEMI - Patient presented with recent (09/23 morning) episode of self limited chest tightness and fatigue resolving before medical intervention - Denies similar episodes, positive history for hyperlipidemia, smoking (36 pack years, quit last year), and positive familial history of CAD - Enoxaparin BID, baby aspirin OD, holding BB d/t sinus bradycardia - CXR clear, no acute cardiopulmonary disease - Negative initial troponin. Serial troponin increased to 0.073 and 0.074 - Will repeat troponin 09/24 - Echocardiogram pending - Cardiology consulted: - left heart catheterization to be performed 09/25/24 - Continue current ACS management # Mixed Hyperlipidemia/elevated blood pressure reading - BP initial elevations recorded 09/23, around 150/100s. 09/24 improved - Recommend outpatient follow up - Longstanding hyperlipidemia, no medication taken - Cholesterol 211, triglycerides 398 on 09/24 AM labs - Atorvastatin started by cardiology beginning 09/25 # GERD - Longstanding, related to food directly before sleep per patient - Chronic condition, no medication taken, monitoring for symptoms <Haja Hernández Student - Last Filed: 09/24/24 14:43> #NSTEMI - Patient presented with recent (09/23 morning) episode of self limited chest tightness and fatigue resolving before medical intervention - Denies similar episodes, positive history for hyperlipidemia, smoking (36 pack years, quit last year), and positive familial history of CAD - Enoxaparin on hold, baby aspirin OD, holding BB d/t sinus bradycardia - CXR clear, no acute cardiopulmonary disease - Negative initial troponin. Serial troponin increased to 0.073 and 0.074 - Will repeat troponin 09/24 - Echocardiogram pending - Cardiology consulted: - left heart catheterization to be performed 09/25/24 - Continue current ACS management - NPO after midnight # Mixed Hyperlipidemia/elevated blood pressure reading - BP initial elevations recorded 09/23, around 150/100s. 09/24 improved - Recommend outpatient follow up - Longstanding hyperlipidemia, no medication taken - Cholesterol 211, triglycerides 398 on 09/24 AM labs - Atorvastatin started by cardiology beginning 09/25 # GERD - Longstanding, related to food directly before sleep per patient - Chronic condition, no medication taken, monitoring for symptoms - Stable <Kang Leung PA-C - Last Filed: 09/24/24 14:54> Time Spent With Patient Time: <Kang Leung PA-C - Last Filed: 09/24/24 14:54> Subjective Date/time seen: 09/24/24 09:34 <Haja Hernández, Student - Last Filed: 09/24/24 14:43> Interval history: CC: Chest discomfort Narrative: Patient is a 59-year-old male, former smoker (36 pack years), with history of hyperlipidemia, GERD, kidney stones, and gout presenting for chest discomfort. Morning of 09/23 a gradual onset of nonradiating substernal chest tightness with associated fatigue occurred. Resolved on its own within an hour without intervention. Denies aggravating or alleviating factors. Not similar to symptoms he experiences with GERD. Patient went to urgent care and was given aspirin 324 mg and following an EKG showing some concerning findings, he was directed to the ED. Denies any chest tightness since first episode. History of coronary artery disease in the family. He believes he had a stress test done a year ago which was unremarkable. Patient was seen and examined. Patient denies any chest tightness since initial episode. Had a stressful event 2 days before chest tightness/fatigue episode, and wonders if chest tightness was related to anxiety. 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 Negative for fever, chills, chest pain, nausea, vomiting, diarrhea, changes in urine, diaphoresis, jaw pain, fatigue, and dizziness. No other acute complaints or pains currently. Discussed elevated troponin with patient. Echocardiogram ordered 09/24, cardiology consulted regarding interventions. Left heart catheterization to be performed 09/25/24. <Haja Hernández Student - Last Filed: 09/24/24 14:43> Review of Systems Review of Systems: All systems reviewed & are unremarkable except as noted in HPI and below <Haja Hernández Student - Last Filed: 09/24/24 14:43> Exam Narrative: General: Well-developed, nontoxic-appearing male sitting up in bed in no acute distress. HEENT: PERRL, EOMI. Sclera anicteric. Oral mucosa moist. Respiratory: Lungs are clear to auscultation bilaterally. Cardiovascular: Regular rate and rhythm with S1-S2. Chest: No tenderness to palpation over the chest wall. Gastrointestinal: Abdomen is soft, protuberant, nontender, and nondistended with positive bowel sounds. Skin: Warm and dry. No rash or lesions on limited exam. Extremities: No cyanosis, clubbing, or edema. Neurological: Alert. No gross focal deficits to casual conversation. Psychiatric: Judgment and insight intact. <Haja Hernández, Student - Last Filed: 09/24/24 14:43> Objective Data Vital Signs Vital Signs: Vital Signs - 24 hr 09/23/24 11:41 09/23/24 11:42 09/23/24 11:58 Temperature 97.6 F Pulse Rate 51 L 57 L Respiratory Rate 18 16 Blood Pressure 152/95 H 152/95 H Pulse Oximetry 99 99 97 Oxygen Delivery Room Air Room Air 09/23/24 12:31 09/23/24 13:16 09/23/24 14:15 Temperature Pulse Rate 59 L 57 L 56 L Respiratory Rate 20 20 16 Blood Pressure 155/97 H 149/94 H 139/88 Pulse Oximetry 96 97 97 Oxygen Delivery 09/23/24 15:46 09/23/24 15:47 09/23/24 16:00 Temperature Pulse Rate 55 L 64 58 L Respiratory Rate 20 25 H 22 H Blood Pressure 145/98 H Pulse Oximetry 97 96 96 Oxygen Delivery 09/23/24 16:15 09/23/24 16:30 09/23/24 16:31 Temperature Pulse Rate 62 60 60 Respiratory Rate 23 H 22 H 23 H Blood Pressure 144/105 H Pulse Oximetry 96 94 96 Oxygen Delivery 09/23/24 16:45 09/23/24 17:00 09/23/24 18:00 Temperature Pulse Rate 61 61 65 Respiratory Rate 25 H 20 Blood Pressure Pulse Oximetry 96 97 Oxygen Delivery 09/23/24 18:10 09/23/24 20:00 09/23/24 20:00 Temperature 97.9 F 98.2 F Pulse Rate 63 66 Respiratory Rate 20 18 Blood Pressure 146/96 H 132/75 Pulse Oximetry 99 100 Oxygen Delivery Room Air 09/23/24 20:00 09/23/24 22:00 09/24/24 00:00 Temperature Pulse Rate 70 61 Respiratory Rate Blood Pressure Pulse Oximetry Oxygen Delivery Room Air 09/24/24 00:00 09/24/24 00:00 09/24/24 02:00 Temperature 97.8 F Pulse Rate 57 L 52 L 63 Respiratory Rate 18 Blood Pressure 120/75 Pulse Oximetry 100 Oxygen Delivery 09/24/24 04:00 09/24/24 04:00 09/24/24 04:00 Temperature 97.8 F Pulse Rate 60 53 L Respiratory Rate 18 Blood Pressure 130/82 Pulse Oximetry 100 100 Oxygen Delivery Room Air 09/24/24 06:00 09/24/24 08:00 09/24/24 08:00 Temperature 97.6 F Pulse Rate 54 L 60 Respiratory Rate 24 H Blood Pressure 137/87 Pulse Oximetry 97 98 Oxygen Delivery Room Air <Haja Hernández, Student - Last Filed: 09/24/24 14:43> Intake/Output Intake/Output: Intake & Output 09/21/24 09/22/24 09/23/24 09/24/24 23:59 23:59 23:59 23:59 Intake Total 250 Output Total 450 Balance -200 <Haja Hernández, Student - Last Filed: 09/24/24 14:43> Meds/Results Medications: Active Medications Generic Name Dose Route Start Last Admin Trade Name Freq PRN Reason Stop Dose Admin Acetaminophen 650 mg 09/23/24 15:44 Acetaminophen 325 Mg Tablet PO Q4H PRN Mild Pain (1-3) or Fever Aspirin 81 mg 09/24/24 09:00 09/24/24 09:26 Aspirin 81 Mg Enteric Tablet PO 81 mg QAM PATRIZIA Administration Enoxaparin Sodium 92 mg 09/24/24 06:00 09/24/24 05:05 Enoxaparin 100 Mg/Ml Syringe SUB-Q 92 mg Q12H PATRIZIA Administration Morphine Sulfate 2 mg 09/23/24 22:11 Morphine Sulfate (*Crx) 2 Mg/Ml Inj IV PUSH Q4H PRN Pain Rated 7-10 Ondansetron HCl 4 mg 09/23/24 15:44 Ondansetron Inj 4 Mg/2 Ml Vial IV PUSH Q4H PRN Nausea Perflutren Lipid Microsphere 0 ml 09/23/24 15:44 Perflutren Lipid Microspheres 1.5 Ml Vial Diluted To 10 Ml Total Volume IV PUSH 09/26/24 15:45 ONCE PRN adequate visualization Protocol <Haja Hernández, Student - Last Filed: 09/24/24 14:43> Radiology Results: ITS Impressions Chest X-Ray 09/23/24 12:11 IMPRESSION: 1. No acute cardiopulmonary disease. <Haja Hernández, Student - Last Filed: 09/24/24 14:43> Labs Labs: Laboratory Results - last 24 hr 09/23/24 09/23/24 09/23/24 11:49 14:44 18:07 WBC 7.4 RBC 5.56 Hgb 17.1 Hct 48.2 MCV 86.7 MCH 30.8 MCHC 35.5 RDW 12.4 Plt Count 185 MPV 9.2 Immature Gran % (Auto) 0.5 Neut % (Auto) 63.3 Lymph % (Auto) 26.9 [place] % (Auto) 7.2 Eos % (Auto) 1.4 Baso % (Auto) 0.7 Lymph # (Auto) 1.98 [place] # (Auto) 0.5 Eos # (Auto) 0.1 Baso # (Auto) 0.1 Abs Immat Gran (auto) 0.04 H Absolute Neuts (auto) 4.7 Absolute Nucleated RBC 0.000 Nucleated RBC % 0.0 PT 12.9 INR 0.9 APTT 25.2 Sodium 138 Potassium 4.1 Chloride 105 Carbon Dioxide 21 L Anion Gap 12 BUN 20 Creatinine 0.71 Estim Creat Clear Calc 104 Estimated GFR > 60 Glucose 94 Calcium 9.2 Magnesium Total Bilirubin 1.0 AST 33 ALT 55 H Alkaline Phosphatase 65 Troponin I < 0.012 0.025 D 0.073 H* D Total Protein 8.0 Albumin 4.7 Triglycerides Cholesterol LDL Cholesterol Direct HDL Direct Lipase 82 09/24/24 09/24/24 04:03 04:07 WBC 4.9 RBC 5.14 Hgb 16.1 Hct 44.7 MCV 87.0 MCH 31.3 MCHC 36.0 RDW 12.2 Plt Count 172 MPV 9.2 Immature Gran % (Auto) Neut % (Auto) Lymph % (Auto) [place] % (Auto) Eos % (Auto) Baso % (Auto) Lymph # (Auto) [place] # (Auto) Eos # (Auto) Baso # (Auto) Abs Immat Gran (auto) Absolute Neuts (auto) Absolute Nucleated RBC Nucleated RBC % PT INR APTT Sodium 137 Potassium 4.1 Chloride 107 Carbon Dioxide 22 Anion Gap 8 BUN 19 Creatinine 0.77 Estim Creat Clear Calc 97 Estimated GFR > 60 Glucose 108 Calcium 8.5 Magnesium 2.1 Total Bilirubin 0.6 AST 36 ALT 48 Alkaline Phosphatase 75 Troponin I 0.074 H* Total Protein 6.0 L Albumin 4.0 Triglycerides 398 H Cholesterol 211 H LDL Cholesterol Direct 108 HDL Direct 48 Lipase <Haja Hernández, Student - Last Filed: 09/24/24 14:43>
--- NOTE | 2024-09-24 10:19 | P.CONCA_ITS ---
Assessment and Plan Assessment and plan (1) Non-ST elevation CA (NSTEMI): Code(s): I21.4 - Non-ST elevation (NSTEMI) myocardial infarction Status: Acute (2) Mixed hyperlipidemia: Code(s): E78.2 - Mixed hyperlipidemia Status: Acute (3) Elevated blood pressure reading: Code(s): R03.0 - Elevated blood-pressure reading, without diagnosis of hypertension Status: Acute Plan 1. NSTEMI 2. HTN 3. Former Smoker 4. Sinus Bradycardia - Continue ACS protocol - No BB for now, has sinus bradycardia - [facility] tomorrow - R/B/A of [facility] discussed with him and his . They agreed to proceed. - NPOMN History of Present Illness History of Present Illness Consult date/time: 09/24/24 10:19 Reason For Visit: Chest pain, elevated troponin Narrative: This is a 59-year-old male, former smoker, with history of hyperlipidemia, gastroesophageal reflux disease, kidney stones, and gout who was admitted with NSTEMI. He came in with substernal chest tightness this morning associated with feelings of fatigue, almost like he had no energy. It resolved on its own within about an hour without intervention. He denies aggravating and alleviating factors. It is not similar to the symptoms he experiences with his GERD. He also denies syncope, near syncope, sweats, shortness of breath, nausea, vomiting, melena, pleuritic pain, lower extremity edema, and calf pain. He has known history of coronary artery disease or premature coronary artery disease in the family. He believes that he had a stress test done years ago which was unremarkable. EKG shows NSR, No dynamic ST-T wave changes Trop 0.012, 0.025, 0.073, 0.074 Review of Systems 2 Review of Systems: 12 systems were reviewed and are negativ e except for as per HPI. All systems reviewed & are unremarkable except as noted in HPI and below [facility] Past Medical History Medical History (Updated 09/24/24 @ 10:08 by Haja Hernández, Student) Gastroesophageal reflux disease Kidney stones Former smoker Low testosterone level in male Positive colorectal cancer screening using Cologuard test Gout, unspecified Mixed hyperlipidemia Surgical History Surgical History (Updated 09/23/24 @ 22:01 by Bonnie G Gerling, PA-C) History of appendectomy History of tonsillectomy Family History Family History Grandparent Hypertension Diabetes mellitus Mother Hypertension Social History Social History (Updated 09/23/24 @ 22:02 by Bonnie Davey PA-C) Social History: Surrogate medical decision maker: Agnesjoleen Pryor, spouse. Code status: Full code. Smoking packs per day: 1 Smoking cigarettes per day: 20.0 Years smoked: 36 Smoking pack-years: 36.00 Smoking status: Former smoker Tobacco type: cigarettes Additional smoking assessment comments: Quit in November 2023 Alcohol intake: current Drinks per week: 18 Substance use type: marijuana Other substance usage details: 2-3 times a week Do You Feel Safe in your Home?: Yes Lack of Transportation: No Lack of Food: Never True Current Housing: I Have Housing Concerned About Future Housing: No Difficulty Paying Gas/Electric Bills: No Difficulty Paying for Meds: No Currently Unemployed: No Education: Bachelor's Degree Difficulty w/ Childcare or Family Care: No Living arrangements: with family Occupation/Education: occupation 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 Spiritual care concerns: No Meds Home Medications and Allergies Home Medications ?Medication ?Instructions ?Recorded ?Confirmed ?Type No Home Medications 09/23/24 09/23/24 History Allergies Allergy/AdvReac Type Severity Reaction Status Date / Time No Known Allergies Allergy Unknown Verified 09/23/24 11:33 Vital Signs Vital Signs - 24 hr 09/23/24 11:41 09/23/24 11:42 09/23/24 11:58 Temperature 36.4 C Pulse Rate 51 L 57 L Respiratory Rate 18 16 Blood Pressure 152/95 H 152/95 H Pulse Oximetry 99 99 97 Oxygen Delivery Room Air Room Air 09/23/24 12:31 09/23/24 13:16 09/23/24 14:15 Temperature Pulse Rate 59 L 57 L 56 L Respiratory Rate 20 20 16 Blood Pressure 155/97 H 149/94 H 139/88 Pulse Oximetry 96 97 97 Oxygen Delivery 09/23/24 15:46 09/23/24 15:47 09/23/24 16:00 Temperature Pulse Rate 55 L 64 58 L Respiratory Rate 20 25 H 22 H Blood Pressure 145/98 H Pulse Oximetry 97 96 96 Oxygen Delivery 09/23/24 16:15 09/23/24 16:30 09/23/24 16:31 Temperature Pulse Rate 62 60 60 Respiratory Rate 23 H 22 H 23 H Blood Pressure 144/105 H Pulse Oximetry 96 94 96 Oxygen Delivery 09/23/24 16:45 09/23/24 17:00 09/23/24 18:00 Temperature Pulse Rate 61 61 65 Respiratory Rate 25 H 20 Blood Pressure Pulse Oximetry 96 97 Oxygen Delivery 09/23/24 18:10 09/23/24 20:00 09/23/24 20:00 Temperature 36.6 C 36.8 C Pulse Rate 63 66 Respiratory Rate 20 18 Blood Pressure 146/96 H 132/75 Pulse Oximetry 99 100 Oxygen Delivery Room Air 09/23/24 20:00 09/23/24 22:00 09/24/24 00:00 Temperature Pulse Rate 70 61 Respiratory Rate Blood Pressure Pulse Oximetry Oxygen Delivery Room Air 09/24/24 00:00 09/24/24 00:00 09/24/24 02:00 Temperature 36.6 C Pulse Rate 57 L 52 L 63 Respiratory Rate 18 Blood Pressure 120/75 Pulse Oximetry 100 Oxygen Delivery 09/24/24 04:00 09/24/24 04:00 09/24/24 04:00 Temperature 36.6 C Pulse Rate 60 53 L Respiratory Rate 18 Blood Pressure 130/82 Pulse Oximetry 100 100 Oxygen Delivery Room Air 09/24/24 06:00 09/24/24 08:00 09/24/24 08:00 Temperature 36.4 C Pulse Rate 54 L 60 Respiratory Rate 24 H Blood Pressure 137/87 Pulse Oximetry 97 98 Oxygen Delivery Room Air 09/24/24 08:00 Temperature Pulse Rate Respiratory Rate Blood Pressure Pulse Oximetry 98 Oxygen Delivery Room Air Exam 2 Narrative: General: Well-developed, nontoxic-appearing male sitting up in bed in no acute distress. HEENT: PERRL, EOMI. Sclera anicteric. Oral mucosa moist. Respiratory: Lungs are clear to auscultation bilaterally. Cardiovascular: Regular rate and rhythm with S1-S2. Chest: No tenderness to palpation over the chest wall. Gastrointestinal: Abdomen is soft, protuberant, nontender, and nondistended with positive bowel sounds. Skin: Warm and dry. No rash or lesions on limited exam. Extremities: No cyanosis, clubbing, or edema. Neurological: Alert. No gross focal deficits to casual conversation. Psychiatric: Judgment and insight intact. Results Labs and Meds 09/24/24 04:07 09/24/24 04:07 Lab results: Cardiac Enzymes 09/23/24 09/23/24 09/23/24 Range/Units 11:49 14:44 18:07 AST 33 (17-59) U/L Troponin I < 0.012 0.025 D 0.073 H* D (0.000-0.034) ng/mL 09/24/24 Range/Units 04:07 AST 36 (17-59) U/L Troponin I 0.074 H* (0.000-0.034) ng/mL Coagulation 09/23/24 Range/Units 11:49 PT 12.9 (11.1-14.7) Seconds APTT 25.2 (22.3-36.8) Seconds Lipids 09/24/24 Range/Units 04:03 Triglycerides 398 H (<150) mg/dL Cholesterol 211 H (0-200) mg/dL CBC 09/23/24 09/24/24 Range/Units 11:49 04:07 WBC 7.4 4.9 (4.5-10.0) K/mm3 RBC 5.56 5.14 (4.6-6.20) M/mm3 Hgb 17.1 16.1 (14.0-18.0) g/dL Hct 48.2 44.7 (42.0-52.0) % Plt Count 185 172 (150-375) k/mm3 Lymph # (Auto) 1.98 (0.9-3.2) K/mm3 [place] # (Auto) 0.5 (0.1-0.6) K/mm3 Eos # (Auto) 0.1 (0-0.3) K/mm3 Baso # (Auto) 0.1 (0.0-0.1) K/mm3 Comprehensive Metabolic Panel 09/23/24 09/24/24 Range/Units 11:49 04:07 Sodium 138 137 (137-145) mmol/L Potassium 4.1 4.1 (3.4-5.0) mmol/L Chloride 105 107 (98-107) mmol/L Carbon Dioxide 21 L 22 (22-30) mmol/L BUN 20 19 (9-20) mg/dL Creatinine 0.71 0.77 (0.7-1.3) mg/dL Glucose 94 108 (65-110) mg/dL Calcium 9.2 8.5 (8.4-10.2) mg/dL AST 33 36 (17-59) U/L ALT 55 H 48 (6-50) U/L Alkaline Phosphatase 65 75 (38-126) U/L Total Protein 8.0 6.0 L (6.3-8.2) g/dL Albumin 4.7 4.0 (3.5-5.1) g/dL Intake and Output 09/23/24 09/24/24 09/24/24 23:59 07:59 15:59 Intake Total 250 240 Output Total 450 Balance -200 240 Intake: Oral 250 240 Output: Urine 450 Patient Weight 09/24/24 23:59 Weight 91.6 kg
[2024-09-24 15:10] LABS: Troponin I 0.034 ng/mL (0.000-0.034)
[2024-09-25] VITALS (26 sets, daily range): BP systolic 112–156; BP diastolic 73–127; PULSE 52–71; RESP 13–21; TEMP 36.4–37.1; O2SAT 96–98
--- NOTE | 2024-09-25 06:00 | ECHO_ITS ---
Patient Info Name: Petr Pryor Age: 59 years : 1965 Gender: Male Ht: 71 in Wt: 201 lbs BSA: 2.15 m2 HR: 53 bpm BP: 156 / 91 mmHg Technical Quality: Good Exam Date: 09/25/2024 10:13 AM Exam Location: Echo Lab Patient Status: Inpatient Admit Date: 09/24/2024 Staff Ordering Physician: Brenden Bains MD Revenue Collector: Mihaela Willard RDCS Attending Provider: Kang Leung PA-C Referring Physician: Herson BRICE; Exam Type: CA echo doppler color flow Study Info Indications - Elevated trop - Chest Pain Complete two-dimensional, color flow and Doppler transthoracic echocardiogram is performed. Summary 1. Complete two-dimensional, color flow and Doppler transthoracic echocardiogram is performed. 2. Left ventricular systolic function is normal, estimated at 60-65%. 3. There is mildly increased left ventricular wall thickness. 4. The left ventricular diastolic function is grade I diastolic dysfunction. 5. There is trace tricuspid valve regurgitation. 6. No pulmonary hypertension, estimated pulmonary arterial systolic pressure is 21 mmHg. 7. There is mild pulmonic regurgitation. Left Ventricle Left ventricular chamber dimension is normal. Left ventricular systolic function is normal, estimated at 60-65%. There is mildly increased left ventricular wall thickness. Left ventricular septal wall motion is normal. The left ventricular diastolic function is grade I diastolic dysfunction. Right Ventricle Right ventricular chamber dimension is normal. Right ventricular systolic function is normal. Left Atria Left atrial chamber dimension is normal. Right Atria Right atrial chamber dimension is normal. Aortic Valve The aortic valve is trileaflet. There is no aortic valve sclerosis. There is no aortic valve stenosis. There is no aortic valve regurgitation. Pulmonic Valve The pulmonic valve is normal. There is no pulmonic valve stenosis. There is mild pulmonic regurgitation. Mitral Valve The mitral valve has normal leaflets. There is no mitral valve stenosis. There is no mitral valve regurgitation. Tricuspid Valve The tricuspid valve leaflets are normal. There is no significant tricuspid valve stenosis. There is trace tricuspid valve regurgitation. No pulmonary hypertension, estimated pulmonary arterial systolic pressure is 21 mmHg. Pericardium/Pleural The pericardium appears normal. There is no pericardial effusion. Inferior Vena Cava Normal inferior vena cava with >50% collapse upon inspiration consistent with Empty right atrial pressure, 5 mmHg. Aorta The aortic root size at the sinus of Valsalva is normal. The prox ascending aorta size is normal. Left Ventricular Outflow Tract Name Value Normal LVOT 2D LVOT Diameter 2.0 cm LVOT Doppler LVOT Peak Gradient 4 mmHg LVOT Mean Gradient 2 mmHg LVOT VTI 18 cm LVOT VTI/AV VTI Ratio 0.7 LVOT Stroke Volume 53 ml LVOT CO 12.0 l/min LVOT CI 5.6 l/min/m2 Pulmonic Valve Name Value Normal PV Doppler PV Peak Gradient 6 mmHg Mitral Valve Name Value Normal MV Doppler MV Decel G[place] 139 cm/s2 MV PHT 107 ms MV Area (PHT) 2.1 cm2 4.0-5.0 MV Diastolic Function MV E Peak Velocity 52 cm/s MV A Peak Velocity 72 cm/s MV E/A 0.7 MV Decel Time 370 ms MV Annular TDI MV E/e' (Septal) 6.2 <=8.0 MV E/e' (Lateral) 5.5 <=8.0 MV E/e' (Average) 5.8 Tricuspid Valve Name Value Normal TV Regurgitation Doppler TR Peak Velocity 202 cm/s TR Peak Gradient 13 mmHg Estimated PAP/RSVP RA Pressure 5 mmHg <=5 PA Systolic Pressure 21 mmHg <36 RV Systolic Pressure 21 mmHg <36 Aorta Name Value Normal Ascending Aorta Ao Root Diameter (MM) 3.6 cm Ao Root Diam Index (MM) 1.7 cm/m2 Aortic Valve Name Value Normal AV Doppler AV Peak Velocity 119 cm/s AV Peak Gradient 6 mmHg AV Mean Gradient 3 mmHg AV VTI 25 cm AV Area (Cont Eq VTI) 2.1 cm2 >=3.0 AV Area (Cont Eq Berry) 2.4 cm2 AV Regurgitation 2D LVOT Area 3.0 cm2 Ventricles Name Value Normal LV Dimensions 2D/MM IVS Diastolic Thickness (2D) 1.2 cm 0.6-1.0 LVID Diastole (2D) 4.5 cm 4.2-5.8 LVIW Diastolic Thickness (2D) 1.0 cm 0.6-1.0 LVID Systole (2D) 2.7 cm 2.5-4.0 LVOT Diameter 2.0 cm LV Mass (2D Cubed) 169.26 g 88.00-224.00 LV Mass Index (2D Cubed) 79 g/m2 49-115 Relative Wall Thickness (2D) 0.44 LV Fractional Shortening/Ejection Fraction 2D/MM LV Fractional Shortening (2D) 41 % 25-43 LV EF (2D Teicholz) 71 % 52-72 LV Diastolic Volume (4C MOD) 104 ml LV EF (4C MOD) 53 % LV Diastolic Volume (2C MOD) 93 ml LV EF (2C MOD) 64 % LV Diastolic Volume (BP MOD) 100 ml 62-150 LV Diastolic Volume Index (BP MOD) 47 ml/m2 34-74 LV Systolic Volume (BP MOD) 43 ml 21-61 LV Systolic Volume Index (BP MOD) 20 ml/m2 11-31 LV EF (BP MOD) 57 % 52-72 LV Diastolic Length (4C) 7.9 cm LV Systolic Length (4C) 6.7 cm LV Stroke Volume (4C MOD) 55 ml RV Dimensions 2D/MM RVID Diastole (2D) 3.8 cm 2.5-3.5 Atria Name Value Normal LA Dimensions LA Dimension (MM) 3.0 cm 3.0-4.1 LA Volume (4C A-L) 33 ml LA Volume (BP A-L) 39 ml RA Dimensions RA Area (4C) 14.5 cm2 <=18.0 Report Signatures
--- NOTE | 2024-09-25 06:57 | PC.NURSE ---
Pt states that DR. Michele informed him that he could have a cup of coffee this morning before his cardiac catheterization. This nurse informed pt that he has a NPO order. Pt verbally aggressive and states that he is getting ready to get angry if he doesn't get his coffee. Attempted pt teaching r/t cardiac catheterization and NPO status and pt refuses to listen.
--- NOTE | 2024-09-25 07:20 | P.SEDATION_ITS ---
Moderate Sedation Note-Pt Data Patient Data Diagnosis: NSTEMI Allergies Allergy/AdvReac Type Severity Reaction Status Date / Time No Known Allergies Allergy Unknown Verified 09/23/24 11:33 Home Medications ?Medication ?Instructions ?Recorded ?Confirmed ?Type No Home Medications 09/23/24 09/23/24 History Current Medications: Active Medications Acetaminophen (Acetaminophen 325 Mg Tablet) 650 mg PO Q4H PRN PRN Reason: Mild Pain (1-3) or Fever Aspirin (Aspirin 81 Mg Enteric Tablet) 81 mg PO QAM [facility] Last Admin: 09/24/24 09:26 Dose: 81 mg Atorvastatin Calcium (Atorvastatin 40 Mg Tablet) 40 mg PO DAILY [facility] Enoxaparin Sodium (Enoxaparin 100 Mg/Ml Syringe) 92 mg SUB-Q Q12H [facility] Last Admin: 09/24/24 05:05 Dose: 92 mg Morphine Sulfate (Morphine Sulfate (*Crx) 2 Mg/Ml Inj) 2 mg IV PUSH Q4H PRN PRN Reason: Pain Rated 7-10 Ondansetron HCl (Ondansetron Inj 4 Mg/2 Ml Vial) 4 mg IV PUSH Q4H PRN PRN Reason: Nausea Perflutren Lipid Microsphere (Perflutren Lipid Microspheres 1.5 Ml Vial Diluted To 10 Ml Total Volume) 0 ml IV PUSH ONCE PRN; Protocol PRN Reason: adequate visualization Stop: 09/26/24 15:45 Sedation/Anesthesia: No previous sedation/anesthesia problems (including family history). [facility] Past Medical History Medical History (Updated 09/24/24 @ 10:08 by Haja Hernández, Student) Gastroesophageal reflux disease Kidney stones Former smoker Low testosterone level in male Positive colorectal cancer screening using Cologuard test Gout, unspecified Mixed hyperlipidemia Surgical History Surgical History (Updated 09/23/24 @ 22:01 by Bonnie Davey PA-C) History of appendectomy History of tonsillectomy Family History Family History Grandparent Hypertension Diabetes mellitus Mother Hypertension Social History Social History (Updated 09/23/24 @ 22:02 by Bonnie Davey PA-C) Social History: Surrogate medical decision maker: Agnes Pryor, spouse. Code status: Full code. Smoking packs per day: 1 Smoking cigarettes per day: 20.0 Years smoked: 36 Smoking pack-years: 36.00 Smoking status: Former smoker Tobacco type: cigarettes Additional smoking assessment comments: Quit in November 2023 Alcohol intake: current Drinks per week: 18 Substance use type: marijuana Other substance usage details: 2-3 times a week Do You Feel Safe in your Home?: Yes Lack of Transportation: No Lack of Food: Never True Current Housing: I Have Housing Concerned About Future Housing: No Difficulty Paying Gas/Electric Bills: No Difficulty Paying for Meds: No Currently Unemployed: No Education: Bachelor's Degree Difficulty w/ Childcare or Family Care: No Living arrangements: with family Occupation/Education: occupation 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 Spiritual care concerns: No Mod Sed Physical Exam Physical Exam Pre Procedural Exam: Normal: Appearance, Eyes, Ears, Nose, Neck, Throat, Airway, Lungs, Heart Size, Heart Rate, Heart Rhythm, Neuro Exam, Abdomen, Liver, Kidneys, Spleen, Breasts, Genitalia, Extremities and Skin Hours since solid foods: 10 Hours since liquid intake: 10 Mallampati Classification: class II Internal Medicine - PN: Obj Da Vital Signs Vital Signs: Vital Signs - 24 hr 09/24/24 08:00 09/24/24 08:00 09/24/24 08:00 Temperature 36.4 C Pulse Rate 60 Respiratory Rate 24 H Blood Pressure 137/87 Pulse Oximetry 97 98 98 Oxygen Delivery Room Air Room Air 09/24/24 08:00 09/24/24 10:00 09/24/24 11:55 Temperature 36.7 C Pulse Rate 65 58 L 62 Respiratory Rate 20 Blood Pressure 128/75 Pulse Oximetry 96 Oxygen Delivery 09/24/24 12:00 09/24/24 12:00 09/24/24 14:00 Temperature Pulse Rate 65 68 Respiratory Rate Blood Pressure Pulse Oximetry 98 Oxygen Delivery Room Air 09/24/24 16:00 09/24/24 16:00 09/24/24 16:00 Temperature 36.5 C Pulse Rate 60 61 Respiratory Rate 16 Blood Pressure 152/89 H Pulse Oximetry 98 98 Oxygen Delivery Room Air 09/24/24 18:00 09/24/24 19:59 09/24/24 20:00 Temperature 36.4 C Pulse Rate 59 L 60 Respiratory Rate 16 Blood Pressure 142/89 H Pulse Oximetry 96 Oxygen Delivery Room Air 09/24/24 20:00 09/24/24 22:00 09/24/24 23:43 Temperature 36.6 C Pulse Rate 58 L 56 L 88 Respiratory Rate 16 Blood Pressure 133/76 Pulse Oximetry 97 Oxygen Delivery 09/25/24 00:00 09/25/24 00:00 09/25/24 02:00 Temperature Pulse Rate 53 L 52 L Respiratory Rate Blood Pressure Pulse Oximetry Oxygen Delivery Room Air 09/25/24 04:00 09/25/24 04:00 09/25/24 04:58 Temperature 37.1 C Pulse Rate 56 L 53 L Respiratory Rate 17 Blood Pressure 156/91 H Pulse Oximetry 97 Oxygen Delivery Room Air 09/25/24 06:00 Temperature Pulse Rate 59 L Respiratory Rate Blood Pressure Pulse Oximetry Oxygen Delivery Intake/Output Intake/Output: Intake & Output 09/22/24 09/23/24 09/24/24 09/25/24 23:59 23:59 23:59 23:59 Intake Total 2150 550 Output Total 2550 300 Balance -400 250 Meds/Results Medications: Active Medications Generic Name Dose Route Start Last Admin Trade Name Freq PRN Reason Stop Dose Admin Acetaminophen 650 mg 09/23/24 15:44 Acetaminophen 325 Mg Tablet PO Q4H PRN Mild Pain (1-3) or Fever Aspirin 81 mg 09/24/24 09:00 09/24/24 09:26 Aspirin 81 Mg Enteric Tablet PO 81 mg QAM PTARIZIA Administration Atorvastatin Calcium 40 mg 09/25/24 09:00 Atorvastatin 40 Mg Tablet PO DAILY [facility] Enoxaparin Sodium 92 mg 09/24/24 06:00 09/24/24 05:05 Enoxaparin 100 Mg/Ml Syringe SUB-Q 92 mg Q12H PATRIZIA Administration Morphine Sulfate 2 mg 09/23/24 22:11 Morphine Sulfate (*Crx) 2 Mg/Ml Inj IV PUSH Q4H PRN Pain Rated 7-10 Ondansetron HCl 4 mg 09/23/24 15:44 Ondansetron Inj 4 Mg/2 Ml Vial IV PUSH Q4H PRN Nausea Perflutren Lipid Microsphere 0 ml 09/23/24 15:44 Perflutren Lipid Microspheres 1.5 Ml Vial Diluted To 10 Ml Total Volume IV PUSH 09/26/24 15:45 ONCE PRN adequate visualization Protocol Radiology Results: ITS Impressions Chest X-Ray 09/23/24 12:11 IMPRESSION: 1. No acute cardiopulmonary disease. Labs 09/24/24 04:07 09/24/24 04:07 Labs: Laboratory Results - last 24 hr 09/24/24 09/24/24 04:03 14:37 Troponin I 0.034 Triglycerides 398 H Cholesterol 211 H LDL Cholesterol Direct 108 HDL Direct 48 ASA Classification/Sedation ASA Classification/Sedation ASA Class: III Emergent: No Risks: Risks, benefits and alternatives explained and patient/family accepted plan for sedation. Patient re-evaluated immediately prior to sedation.
--- NOTE | 2024-09-25 08:29 | PM.IMPN ---
Progress Note: A&P Assessment and Plan (1) Non-ST elevation [place] (NSTEMI): Code(s): I21.4 - Non-ST elevation (NSTEMI) myocardial infarction Status: Acute (2) Mixed hyperlipidemia: Code(s): E78.2 - Mixed hyperlipidemia Status: Acute (3) Elevated blood pressure reading: Code(s): R03.0 - Elevated blood-pressure reading, without diagnosis of hypertension Status: Acute (4) Gastroesophageal reflux disease: Qualifiers: Esophagitis presence: esophagitis presence not specified Qualified Code(s): K21.9 - Gastro-esophageal reflux disease without esophagitis Code(s): K21.9 - Gastro-esophageal reflux disease without esophagitis Status: Acute Plan #NSTEMI - Patient presented with recent (09/23 morning) episode of self limited chest tightness and fatigue resolving before medical intervention - Denies similar episodes, positive history for hyperlipidemia, smoking (36 pack years, quit last year), and positive familial history of CAD - Enoxaparin on hold, baby aspirin OD, holding BB d/t sinus bradycardia - CXR clear, no acute cardiopulmonary disease - Negative initial troponin. Serial troponin increased to 0.073 and 0.074 - Repeat Trop down trending, 0.034 - Echocardiogram pending - Cardiology consulted: - left heart catheterization to be performed 09/25/24 - Continue current ACS management - [facility] today # Mixed Hyperlipidemia/elevated blood pressure reading - BP initial elevations recorded 09/23, around 150/100s. 09/24 improved - Recommend outpatient follow up - Longstanding hyperlipidemia, no medication taken - Cholesterol 211, triglycerides 398 on 09/24 AM labs - Atorvastatin started # GERD - Longstanding, related to food directly before sleep per patient - Chronic condition, no medication taken, monitoring for symptoms - Stable Subjective Date/time seen: 09/25/24 08:29 Interval history: Patient is a 59-year-old male, former smoker (36 pack years), with history of hyperlipidemia, GERD, kidney stones, and gout presenting for chest discomfort. Morning of 09/23 a gradual onset of nonradiating substernal chest tightness with associated fatigue occurred. Resolved on its own within an hour without intervention. 09/25/2024 [facility] today. Pt examined before procedure, had no complaints, denies any CP, SOB, n/v, abd pain, or urinary/bowel complaints. Likely discharge tomorrow with appropriate post cath care instructions. Review of Systems Review of Systems: 12 systems were reviewed and are negative except for as per HPI. Exam Narrative: General: Well-developed, nontoxic-appearing male sitting up in bed in no acute distress. Weight: 91.6 kg. BMI: 28.2. HEENT: PERRL, EOMI. Sclera anicteric. Oral mucosa moist. Neck: Supple. Respiratory: Lungs are clear to auscultation bilaterally. Cardiovascular: Regular rate and rhythm with S1-S2. Chest: No tenderness to palpation over the chest wall. Gastrointestinal: Abdomen is soft, protuberant, nontender, and nondistended with positive bowel sounds. Skin: Warm and dry. No rash or lesions on limited exam. Extremities: No cyanosis, clubbing, or edema. Radial and pedal pulses intact. Neurological: Alert. Cranial nerves 2-12 are grossly intact. No gross focal deficits to casual conversation. Psychiatric: Pleasant and cooperative with normal mood and affect. Judgment and insight intact. Objective Data Vital Signs Vital Signs: Vital Signs - 24 hr 09/24/24 10:00 09/24/24 11:55 09/24/24 12:00 Temperature 98.0 F Pulse Rate 58 L 62 Respiratory Rate 20 Blood Pressure 128/75 Pulse Oximetry 96 98 Oxygen Delivery Room Air 09/24/24 12:00 09/24/24 14:00 09/24/24 16:00 Temperature Pulse Rate 65 68 Respiratory Rate Blood Pressure Pulse Oximetry 98 Oxygen Delivery Room Air 09/24/24 16:00 09/24/24 16:00 09/24/24 18:00 Temperature 97.7 F Pulse Rate 60 61 59 L Respiratory Rate 16 Blood Pressure 152/89 H Pulse Oximetry 98 Oxygen Delivery 09/24/24 19:59 09/24/24 20:00 09/24/24 20:00 Temperature 97.6 F Pulse Rate 60 58 L Respiratory Rate 16 Blood Pressure 142/89 H Pulse Oximetry 96 Oxygen Delivery Room Air 09/24/24 22:00 09/24/24 23:43 09/25/24 00:00 Temperature 97.8 F Pulse Rate 56 L 88 Respiratory Rate 16 Blood Pressure 133/76 Pulse Oximetry 97 Oxygen Delivery Room Air 09/25/24 00:00 09/25/24 02:00 09/25/24 04:00 Temperature Pulse Rate 53 L 52 L Respiratory Rate Blood Pressure Pulse Oximetry Oxygen Delivery Room Air 09/25/24 04:00 09/25/24 04:58 09/25/24 06:00 Temperature 98.7 F Pulse Rate 56 L 53 L 59 L Respiratory Rate 17 Blood Pressure 156/91 H Pulse Oximetry 97 Oxygen Delivery 09/25/24 07:44 Temperature 97.6 F Pulse Rate 54 L Respiratory Rate 18 Blood Pressure 136/83 Pulse Oximetry 96 Oxygen Delivery Intake/Output Intake/Output: Intake & Output 09/22/24 09/23/24 09/24/24 09/25/24 23:59 23:59 23:59 23:59 Intake Total 2150 550 Output Total 2550 300 Balance -400 250 Meds/Results Medications: Active Medications Generic Name Dose Route Start Last Admin Trade Name Freq PRN Reason Stop Dose Admin Acetaminophen 650 mg 09/23/24 15:44 Acetaminophen 325 Mg Tablet PO Q4H PRN Mild Pain (1-3) or Fever Aspirin 81 mg 09/24/24 09:00 09/24/24 09:26 Aspirin 81 Mg Enteric Tablet PO 81 mg QAM PATRIZIA Administration Atorvastatin Calcium 40 mg 09/25/24 09:00 Atorvastatin 40 Mg Tablet PO DAILY PATRIZIA Enoxaparin Sodium 92 mg 09/24/24 06:00 09/24/24 05:05 Enoxaparin 100 Mg/Ml Syringe SUB-Q 92 mg Q12H PATRIZIA Administration Morphine Sulfate 2 mg 09/23/24 22:11 Morphine Sulfate (*Crx) 2 Mg/Ml Inj IV PUSH Q4H PRN Pain Rated 7-10 Ondansetron HCl 4 mg 09/23/24 15:44 Ondansetron Inj 4 Mg/2 Ml Vial IV PUSH Q4H PRN Nausea Perflutren Lipid Microsphere 0 ml 09/23/24 15:44 Perflutren Lipid Microspheres 1.5 Ml Vial Diluted To 10 Ml Total Volume IV PUSH 09/26/24 15:45 ONCE PRN adequate visualization Protocol Radiology Results: ITS Impressions Chest X-Ray 09/23/24 12:11 IMPRESSION: 1. No acute cardiopulmonary disease. Labs Labs: Laboratory Results - last 24 hr 09/24/24 09/24/24 04:03 14:37 Troponin I 0.034 Triglycerides 398 H Cholesterol 211 H LDL Cholesterol Direct 108 HDL Direct 48 Quality VTE Prophylaxis VTE prophylaxis: pharmacologic ordered
[2024-09-25] MEDS: ATORVASTATIN 40 MG TABLET PO (08:36)
[2024-09-25] MEDS: ASPIRIN 81 MG ENTERIC TABLET PO (08:36)
--- NOTE | 2024-09-25 09:05 | PM.PNCARD ---
Progress Note: A&P Assessment and Plan (1) Non-ST elevation [place] (NSTEMI): Code(s): I21.4 - Non-ST elevation (NSTEMI) myocardial infarction Status: Acute (2) Mixed hyperlipidemia: Code(s): E78.2 - Mixed hyperlipidemia Status: Acute (3) Elevated blood pressure reading: Code(s): R03.0 - Elevated blood-pressure reading, without diagnosis of hypertension Status: Acute Plan 1. NSTEMI 2. HTN 3. Former Smoker 4. Sinus Bradycardia - Continue ACS protocol - No BB for now, has sinus bradycardia - [facility] today -further recommendations post cardiac catheterization Subjective Date/time seen: 09/25/24 09:05 Interval history: Patient is a 59-year-old male, former smoker (36 pack years), with history of hyperlipidemia, GERD, kidney stones, and gout presenting for chest discomfort. Morning of 09/23 a gradual onset of nonradiating substernal chest tightness with associated fatigue occurred. Resolved on its own within an hour without intervention. 09/25/2024 Cardiac cath today. Review of Systems Review of Systems: 12 systems were reviewed and are negative except for as per HPI. All systems reviewed & are unremarkable except as noted in HPI and below Exam Narrative: General: Well-developed, nontoxic-appearing male sitting up in bed in no acute distress. HEENT: PERRL, EOMI. Sclera anicteric. Oral mucosa moist. Respiratory: Lungs are clear to auscultation bilaterally. Cardiovascular: Regular rate and rhythm with S1-S2. Chest: No tenderness to palpation over the chest wall. Gastrointestinal: Abdomen is soft, protuberant, nontender, and nondistended with positive bowel sounds. Skin: Warm and dry. No rash or lesions on limited exam. Extremities: No cyanosis, clubbing, or edema. Neurological: Alert. No gross focal deficits to casual conversation. Psychiatric: Judgment and insight intact. Objective Data Vital Signs Vital Signs: Vital Signs - 24 hr 09/24/24 10:00 09/24/24 11:55 09/24/24 12:00 Temperature 36.7 C Pulse Rate 58 L 62 Respiratory Rate 20 Blood Pressure 128/75 Pulse Oximetry 96 98 Oxygen Delivery Room Air 09/24/24 12:00 09/24/24 14:00 09/24/24 16:00 Temperature Pulse Rate 65 68 Respiratory Rate Blood Pressure Pulse Oximetry 98 Oxygen Delivery Room Air 09/24/24 16:00 09/24/24 16:00 09/24/24 18:00 Temperature 36.5 C Pulse Rate 60 61 59 L Respiratory Rate 16 Blood Pressure 152/89 H Pulse Oximetry 98 Oxygen Delivery 09/24/24 19:59 09/24/24 20:00 09/24/24 20:00 Temperature 36.4 C Pulse Rate 60 58 L Respiratory Rate 16 Blood Pressure 142/89 H Pulse Oximetry 96 Oxygen Delivery Room Air 09/24/24 22:00 09/24/24 23:43 09/25/24 00:00 Temperature 36.6 C Pulse Rate 56 L 88 Respiratory Rate 16 Blood Pressure 133/76 Pulse Oximetry 97 Oxygen Delivery Room Air 09/25/24 00:00 09/25/24 02:00 09/25/24 04:00 Temperature Pulse Rate 53 L 52 L Respiratory Rate Blood Pressure Pulse Oximetry Oxygen Delivery Room Air 09/25/24 04:00 09/25/24 04:58 09/25/24 06:00 Temperature 37.1 C Pulse Rate 56 L 53 L 59 L Respiratory Rate 17 Blood Pressure 156/91 H Pulse Oximetry 97 Oxygen Delivery 09/25/24 07:44 09/25/24 08:00 Temperature 36.4 C Pulse Rate 54 L 57 L Respiratory Rate 18 Blood Pressure 136/83 Pulse Oximetry 96 Oxygen Delivery Intake/Output Intake/Output: Intake & Output 09/22/24 09/23/24 09/24/24 09/25/24 23:59 23:59 23:59 23:59 Intake Total 2150 550 Output Total 2550 600 Balance -400 -50 Meds/Results Medications: Active Medications Generic Name Dose Route Start Last Admin Trade Name Freq PRN Reason Stop Dose Admin Acetaminophen 650 mg 09/23/24 15:44 Acetaminophen 325 Mg Tablet PO Q4H PRN Mild Pain (1-3) or Fever Aspirin 81 mg 09/24/24 09:00 09/25/24 08:36 Aspirin 81 Mg Enteric Tablet PO 81 mg QAM PATRIZIA Administration Atorvastatin Calcium 40 mg 09/25/24 09:00 09/25/24 08:36 Atorvastatin 40 Mg Tablet PO 40 mg DAILY PATRIZIA Administration Enoxaparin Sodium 92 mg 09/24/24 06:00 09/24/24 05:05 Enoxaparin 100 Mg/Ml Syringe SUB-Q 92 mg Q12H PATRIZIA Administration Morphine Sulfate 2 mg 09/23/24 22:11 Morphine Sulfate (*Crx) 2 Mg/Ml Inj IV PUSH Q4H PRN Pain Rated 7-10 Ondansetron HCl 4 mg 09/23/24 15:44 Ondansetron Inj 4 Mg/2 Ml Vial IV PUSH Q4H PRN Nausea Perflutren Lipid Microsphere 0 ml 09/23/24 15:44 Perflutren Lipid Microspheres 1.5 Ml Vial Diluted To 10 Ml Total Volume IV PUSH 09/26/24 15:45 ONCE PRN adequate visualization Protocol Radiology Results: ITS Impressions Chest X-Ray 09/23/24 12:11 IMPRESSION: 1. No acute cardiopulmonary disease. Labs Labs: Laboratory Results - last 24 hr 09/24/24 14:37 Troponin I 0.034
[2024-09-25 12:03] LABS: Activated Clotting Time 164 SEC (74-137)
--- NOTE | 2024-09-25 13:51 | P.PCNCC_ITS ---
Cardiac Cath Procedure Note Date of procedure:: 09/25/24 Performing physician:: Germán Michele MD Indication:: NSTEMI Procedure Procedure performed:: Left heart catheterization Coronary angiography Pressure wire assessment across mid LAD Pressure wire assessment across mid RCA Sedation/Medication given:: Versed 1 mg Fentanyl 25 mcg Access site:: Right radial Estimated blood loss:: 2 CC Procedure note:: The patient was brought to the catheterization the cardiac catheterization lab. Informed consent was taken. The patient was prepped and draped in usual sterile manner. Moderate sedation was given under my supervision. The patient's hemodynamic status was maintained by an independent trained personnel. Right radial access was taken after local anesthesia by Lidocaine. A 5-6 Sinhala s richie was placed. A JL3 5 catheter was used to engage the left coronary artery and the JR4 catheter was used to engage the right coronary artery. Multiple cine angiographic images were taken in different projections. The aortic valve was crossed and LVEDP was measured. iFR was performed of the RCA and LAD as per established protocol. Based on the hemodynamic assessment PCI across the LAD/RCA can be safely deferred Catheters were removed radial sheath was removed out of the procedure and TR band was placed for hemostasis Findings:: 1 Coronary angiography.? CO-dominant system with a ramus intermedius. --- Left main artery; large caliber, intermediately and divides into left anterior descending and left circumflex branches.? No angiographic evidence of atherosclerotic disease. --- Left anterior descending artery: large caliber vessel which reaches the apex and gives rise konrad small caliber diagonal artery. Mid LAD has 40-50% stenosis; iFR 0.93. Diagonal is a small caliber vessel which has a 60% stenosis in its prox-third and a 60% stenosis in its mid-third? --- Ramus intermedius artery:? Large caliber vessel which reaches the apex.? Luminal irregularities seen --- Left circumflex artery:? Large caliber vessel which gives rise to a small- mod caliber OM 1/2.? --- Right coronary artery: Large caliber vessel divides into PDA and PLV branches. ?Mid RCA has 50% stenosis; iFR 0.96 2. Left Heart Catheterization LVEDP 22 mmhg No significant LV-Ao gradient on pullback Conclusion:: 1. Non obstructive disease -- LM: 0 -- LAD: mLAD 40-50%, D1 smal caliber vessel, prox-third 60%, mid-third 60% -- LCX; Luminal irregularities -- Ramus; Luminal irregularities -- RCA : mRCA 40-50% 2. Slow flow in LAD/LCX suggestive of microvascular disease 3. Pressure wire assessment across mid LAD, iFR 0.93. No drift on pullback. Based on the hemodynamic assessment PCI across the LAD can be safely deferred 4.. Pressure wire assessment across mid LAD, iFR 0.96. Based on the hemodynamic assessment PCI across theRCA can be safely deferred Assessment and Plan Assessment and plan (1) Non-ST elevation [place] (NSTEMI): Code(s): I21.4 - Non-ST elevation (NSTEMI) myocardial infarction Status: Acute Plan - DAPT for atleast 12 months - Lipitor 40 mg POD OD, Lipid profile in 3 months - No beta vernon as has soft BP/bradycardia at presentation - Low dose Imdur 30 mg PO OD - Avoid PDE5 inhibitors if on Imdur - Echo pending
[2024-09-25] MEDS: CLOPIDOGREL BISULFATE 300 MG TABLET 600 MG PO (14:59)
--- NOTE | 2024-09-25 16:43 | PC.NURSE ---
1343: Spoke to Jeff in [email or web address] about the patient's lost phone. Gave Jeff the patient's phone number to phone. Jeff stated he will look for the phone and let me know either way if he finds it or not. 1432: Jeff from [employer] came to the nurses station. He was unable to find the phone and offered to call the [employer] to let them know to look out for it and to give them a description of the device.
--- NOTE | 2024-09-25 17:52 | PM.DS ---
DS: Admitting Diagnosis Discharge Date 09/25/2024 Admitting Diagnosis Non-ST elevation OR DS: Discharge Diagnosis Discharge Diagnosis (1) Non-ST elevation OR (NSTEMI): Code(s): I21.4 - Non-ST elevation (NSTEMI) myocardial infarction Status: Acute (2) Mixed hyperlipidemia: Code(s): E78.2 - Mixed hyperlipidemia Status: Acute (3) Elevated blood pressure reading: Code(s): R03.0 - Elevated blood-pressure reading, without diagnosis of hypertension Status: Acute (4) Gastroesophageal reflux disease: Qualifiers: Esophagitis presence: esophagitis presence not specified Qualified Code(s): K21.9 - Gastro-esophageal reflux disease without esophagitis Code(s): K21.9 - Gastro-esophageal reflux disease without esophagitis Status: Acute DS: Summary Hospital Course Reason for hospitalization: Chest discomfort Hospital Course: This is a 59-year-old male, former smoker, with history of hyperlipidemia, gastroesophageal reflux disease, kidney stones, and gout who presented to the emergency department for evaluation of chest discomfort. He reports the gradual onset of mild, nonradiating substernal chest tightness this morning associated with feelings of fatigue, almost like he had no energy. It resolved on its own within about an hour without intervention. He denies aggravating and alleviating factors. It is not similar to the symptoms he experiences with his GERD. He went to urgent care for evaluation and was given aspirin 324 mg and after an EKG showed some concerning findings, he was directed to the emergency department. Currently he has no complaints and denies chest tightness. He also denies syncope, near syncope, sweats, shortness of breath, nausea, vomiting, melena, pleuritic pain, lower extremity edema, and calf pain. He has known history of coronary artery disease or premature coronary artery disease in the family. He believes that he had a stress test done years ago which was unremarkable. In the ED: Vital signs on arrival include a temperature 97.6?, blood pressure 152/95, pulse 51, respiratory rate 18, SpO2 99% on room air. CMP and CBC were without significant findings. Initial troponin was undetectable but his 6 hour troponin was elevated to 0.073. EKG showed sinus bradycardia with first-degree AV block, delayed precordial R/S transition, borderline R-wave progression, and small Q-waves in lead 3. He received aspirin 324 mg at urgent care and was given enoxaparin 1 mg/kg and he is being admitted to the IMU in this setting for close monitoring and Cardiology consultation. The patient was taken for a coronary angiography left heart catheterization on 09/25. LHC showed no obstructive disease echo was slow flow in the LAD/LCX suggestive of microvascular disease. Cardiology cleared for discharge with instructions to maintain on DAPT therapy for least 12 months, Lipitor 40 mg p.o. OD, for repeat lipid profile in 3 months, low-dose Imdur 30 mg p.o. daily, to hold on beta-vernon as patient continues to present with soft blood pressures and bradycardia and to avoid PDE5 inhibitors on Imdur. Patient otherwise stable, with no chest pain, shortness a breath, nausea/vomiting, headaches, dizziness, abdominal pain. The patient expressed interest in being discharged with close follow-up with varnish melter helper in the outpatient setting. Patient otherwise stable and cleared by Cardiology. Will be sent home with a prescription for aspirin, Plavix, Imdur and atorvastatin. Plan for discharge home at this time. Status at Discharge Functional status at discharge: independent ambulation Overall status at discharge: patient is back to baseline Time Spent with Patient Time attestation: Total time spent providing and/or coordinating discharge services: 35 Exam Narrative: General: Well-developed, nontoxic-appearing male sitting up in bed in no acute distress. Weight: 91.6 kg. BMI: 28.2. HEENT: PERRL, EOMI. Sclera anicteric. Oral mucosa moist. Neck: Supple. Respiratory: Lungs are clear to auscultation bilaterally. Cardiovascular: Regular rate and rhythm with S1-S2. Chest: No tenderness to palpation over the chest wall. Gastrointestinal: Abdomen is soft, protuberant, nontender, and nondistended with positive bowel sounds. Skin: Warm and dry. No rash or lesions on limited exam. Extremities: No cyanosis, clubbing, or edema. Radial and pedal pulses intact. Neurological: Alert. Cranial nerves 2-12 are grossly intact. No gross focal deficits to casual conversation. Psychiatric: Pleasant and cooperative with normal mood and affect. Judgment and insight intact. DS: Data Data Completed and Pending Labs on day of discharge: Labs from last 24 hours 09/25/24 12:01 Activ Coag Time Sheila 164 H Discharge Plan Discharge Attending physician on discharge: Kang Leung Consulting providers: Germán Michele Discharging Clinician: Kang Leung Anticipated Discharge Date/Time: 09/25/24 17:41 Patient Disposition: Home Activity: as tolerated Diet: as tolerated Discharge Instructions: Discharge disposition: Stable Take medications as prescribed. You will be prescribed Aspirin and Plavix to be taken for atleast the next 12 months. Discuss with your primary care physician regarding maintenance on this therapy. You will also be prescribed Lipitor 40mg and Imdur 30mg to be taken once per day. Hold on taking your beta vernon. Monitor blood pressures Take caution while standing, rising, or moving Change positions slowly taking a break between each position change If you standing feel dizzy sit back down and take a break Encouraged to continue with yearly vaccinations Return to the emergency department if he developed sudden shortness of breath, chest pain, nausea, vomiting, upset stomach or intractable diarrhea Return to the emergency department if you develop fever greater than 101.5 Follow-up with the primary care physician within 1-2 weeks regarding your visit and continuation of your new medications. Thank you for choosing [facility] for your healthcare needs Patient Instructions: Antibiotic Form Patient Language: Romansh Stand Alone Forms: General Discharge Information Follow-up/Referrals: Germán Michele MD [Physician] - Luis Manuel James MD [Primary Care Provider] - Discharge Medications: New aspirin 81 mg capsule 81 mg PO DAILY Qty: 30 0RF clopidogrel [Plavix] 75 mg tablet 75 mg PO DAILY Qty: 30 0RF atorvastatin [Lipitor] 40 mg tablet 40 mg PO DAILY Qty: 30 0RF isosorbide mononitrate 30 mg Tablet Extended Release 24 Hr 30 mg PO QAM Qty: 30 0RF Date of admission: 09/24/24 14:57 Primary Care Provider: Luis Manuel James Admitting Provider: Zara Martin Attending physician on admission: Kang Leung Condition: Stable Quality VTE Prophylaxis VTE prophylaxis: pharmacologic ordered
== END 2024-09-25 18:33 | disposition home or self-care (01) | DRG 282 ==
LOC: ANHED 11:55 → ANHIMU 16:54
PROVIDERS: Internal Medicine Interventional Cardiology; Physician Assistant; Admitting Provider Hospitalist; Emergency Provider Student in an Organized Health Care Education/Training Program; PCP Family Medicine; Visit Provider Physician Assistant
PROC: 4A023N7 Measurement of Cardiac Sampling and Pressure, Left Heart, Percutaneous Approach (ICD-10-PCS; CPT 93452; principal; 2024-09-25 11:30)
PROC: 4A033BC Measurement of Arterial Pressure, Coronary, Percutaneous Approach (ICD-10-PCS; CPT 93571; 2024-09-25 11:30)
PROC: 4A033BC Measurement of Arterial Pressure, Coronary, Percutaneous Approach (ICD-10-PCS; CPT 75580; 2024-09-25 11:30)
DX: I21.4 Non-ST elevation (NSTEMI) myocardial infarction (principal); R03.0 Elevated blood-pressure reading, without diagnosis of hypertension; E78.2 Mixed hyperlipidemia; K21.9 Gastro-esophageal reflux disease without esophagitis; M10.9 Gout, unspecified; H93.13 Tinnitus, bilateral; Z87.891 Personal history of nicotine dependence; Z87.442 Personal history of urinary calculi
CPT/HCPCS: 36415; 71045; 80053; 80061; 83690; 83735; 84484; 85025; 85027; 85610; 85730; 93005; 93306; 93458; 93571; 93572; 96372; 96374; 96375; 99291; A9270; C1769; C1887; C1894; G0378; J1644; J1650; J2003; J2250; J2305; J2371; J3010; J7040; J7050